=== PATIENT | male | born 1950 | race Caucasian/White ===

== ENCOUNTER 2018-07-26 14:40 | Emergency (ER) | payer OTHER, MEDICARE ==
--- OUTSIDE RECORDS SUMMARY | 2018-07-26 14:43 | XMS REPORT | Encounter Summary ---
:1950 Author Care Team Providers Name Role Phone Dr. Enrique Sun Primary Care Provider [phone] Senthil Calhoun Fire Extinguisher Installer [phone] Van Young MD Claim Trainee [phone] Reason for Visit cough Instructions 1. Chronic bronchitis ProAir HFA 90 mcg/actuation aerosol inhaler Cheratussin AC 10 mg-100 mg/5 mL oral liquid amoxicillin 875 mg-potassium clavulanate 125 mg tablet ProAir HFA 90 mcg/actuation aerosol inhaler Medrol (Justus) 4 mg tablets in a dose pack Discussion Note: None recorded.Patient educational handouts: No information available. Plan of Care Patient Instructions Meds were sent to your pharmacy today, please call if any issues call/email if you are not feeling better within the next 1-2 weeks Reminders Provider Appointments [facility]v on or around [facility] 12/28/2018 MD [facility] None recorded. Referral None recorded. Procedures None recorded. Surgeries None recorded. Imaging None recorded. Medications Name Start Date amoxicillin 875 mg-potassium clavulanate 125 mg tablet Take 1 tablet every 12 hours by oral route with meals for 10 days. Cheratussin AC 10 mg-100 mg/5 mL oral liquid Take 10 mL twice a day by oral route as needed. for cough- sedating ibuprofen 800 mg tablet Take 1 tablet 3 times a day by oral route as needed. irbesartan 150 mg-hydrochlorothiazide 12.5 mg tablet levothyroxine 25 mcg tablet Medrol (Justus) 4 mg tablets in a dose pack as directed, with meals ProAir HFA 90 mcg/actuation aerosol inhaler Inhale 2 puffs every 4 hours by inhalation route as needed. sotalol 80 mg tablet Take 1 tablet twice a day by oral route for 90 days. Medications Administered None recorded. Vitals Height Weight BMI Blood Pressure 5 ft 11 in 210.5 lbs 29.4 kg/m2 110/74 mm[Hg] Lab Results None recorded. Allergies Code Code System Name Reaction Severity Status Onset NKDA Problems Name Status Onset Date Source Hypothyroidism Active 06/08/2018 Hypertensive Disorder Active 06/08/2018 Atrial Fibrillation Active 06/08/2018 History of Malignant Melanoma Active 06/08/2018 Procedures Date Name Performed by 05/24/2011 Other Information not available 05/24/2007 Cancer Surgery Information not available 05/24/1986 Cardiac Surgery Information not available Cardiac Surgery Information not available Foot/toes Surgery Procedure Information not available Tonsillectomy Information not available 06/08/2018 XR, Knee, 3 View [facility] [address] [place] [address] (Work Place) Vaccine List Vaccine Type influenza, high dose seasonal 06/08/20180.5 mL pneumococcal polysaccharide PPV23 08/22/2014 Social History Smoking Status Never Smoker Past Encounters 07/01/2018 Chronic Bronchitis Annabella Palmer MD: [address], [address], [place] [address], Ph. 06/08/2018 Pain in Right Knee; Screening for Malignant Neoplasm of Colon; Immunization; Body Mass Index 25-29 - Overweight Enrique Sun MD: [address], [address], [place] [address], Ph. History of Present Illness Note: 68 yo male with hx Afib, c/o cough x 4 weeks. Productive cough, green sputum, worse when lyingdown, congestion, post nasal drainage, denies fever. no relief with prednisone 3 wks ago (for kneepain) saw ortho, had right knee steroid injection this morning<div>nonsmoker, no wheeze, n/v/d </div>Review of Systems: ROS as noted in the HPI Review of Systems None recorded. Physical Exam Notes: General: well developed, well nourished, in no acute distress. mildly fatigued

Head: normocephalic and atraumatic.

Eyes: PERRL/EOM intact, conjunctiva and sclera clear with out nystagmus.

Ears: TM's intact and clear with normal canals with grossly normal hearing.

Nose: turbinates congested, no sinus TTP. no deformity, discharge, inflammation, or lesions.

Mouth: (+) mild injection of posterior oropharynx, (+)clear post nasal drainage, otherwise no deformity or lesions with good dentition.

Neck: no masses, thyromegaly, or abnormal cervical nodes.

Chest Wall: no deformities or masses noted.

Lungs: distant breath sounds bilaterally nonlabored respiratory effort, no wheeze, rales or rhonchi

Heart: chest non-tender; regular rate and rhythm, S1, S2 without murmurs, rubs, or gallops

Abdomen: soft, nontender, nondistended, no masses, no hernia, no rebound, normoactive bowel sounds

Msk: no deformity or scoliosis noted of thoracic or lumbar spine.

Pulses: pulses normal in all 4 extremities.

Extremities: no clubbing, cyanosis, edema, or deformity noted with normal full range of motion of all joints.

Neurologic: no focal deficits, cranial nerves II-XII grossly intact with normal sensation, reflexes, coordination, muscle strength and tone.

Skin: intact without lesions or rashes.

Lymph Nodes:no significant cervical, axillary or supraclavicular adenopathy.

Psych: alert and cooperative; normal mood and affect; normal attention span and concentration. No suicidal/homicidal ideations, no panic attacks
--- OUTSIDE RECORDS SUMMARY | 2018-07-26 14:43 | XMS REPORT | Clinical Summary ---
:1950 Author Organization [facility] Address [address] [place] [address] Care Team Providers Name Role Phone Zacarias Cagle MD Primary Care Provider Allergies No Known Allergies Medications Medication Sig Dispensed Refills Start Date End Date Status sotalol (BETAPACE) 80 2 (two) times a 0 09/11/2016 Active MG tablet day. aspirin (ECOTRIN) 81 Take 81 mg by 0 Active MG enteric coated mouth daily. tablet valsartan-hydrochloro 0 02/18/2017 Active thiazide (DIOVAN-HCT) 160-12.5 mg per tablet dextromethorphan-guai Take 1 tablet by 28 each 0 08/11/2017 Active fenesin (MUCINEX DM) mouth 2 (two) 30-600 mg tablet times a day as extended release 12 needed hr (congestion post nasal drip). promethazine-codeine Take 5 mL by 120 mL 0 08/11/2017 08/21/2017 (PHENERGAN with mouth every 6 CODEINE) 6.25-10 mg/5 (six) hours as mL syrup needed for cough for up to 10 days. azithromycin Take 2 tablets 6 tablet 0 08/11/2017 08/16/2017 (ZITHROMAX) 250 MG the first day, tablet then 1 tablet daily for 4 days. Hospital, Clinic, or Other Ordered Dose Route Frequency Start Date End Date Status Facility Administered Medication methylPREDNISolone acetate 40 mg IM once 08/11/2017 08/11/2017 Ended (DEPO-MEDROL) injection 40 mgIndications: Acute sinusitis, recurrence not specified, unspecified location Active Problems Problem Noted Date Essential hypertension 10/27/2016 A-fib 09/03/2016 Encounters Date Type Specialty Care Team Description 08/11/2017 Office Visit Family Medicine Zacarias Cagle Acute sinusitis, recurrence not specified, unspecified location (Primary Dx); MD Alon Pharyngitis, unspecified etiology; Acute secretory otitis media of both ears; Acute bronchitis, unspecified organism; Other fatigue; Myalgia; Seasonal allergic rhinitis, unspecified chronicity, unspecified trigger after 07/25/2017 Family History Medical History Relation Name Comments Cancer Father Colon cancer Father Parkinsonism Father No Known Problems Mother Thyroid disease Sister Relation Name Status Comments Father Mother Sister Social History Tobacco Use Types Packs/Day Years Used Date Never Smoker Smokeless Tobacco: Never Used Alcohol Use Drinks/Week oz/Week Comments Yes Occassionally Sex Assigned at Date Recorded Not on file Job Start Date Occupation Industry Not on file Not on file Not on file Travel History Travel Start Travel End No recent travel history available. Last Filed Vital Signs Vital Sign Reading Time Taken Blood Pressure 94/59 08/11/2017 1:38 PM CDT Pulse 77 08/11/2017 1:38 PM CDT Temperature 36.8 C (98.2 F) 08/11/2017 1:38 PM CDT Respiratory Rate 20 08/11/2017 1:38 PM CDT Oxygen Saturation 97% 08/11/2017 1:38 PM CDT Inhaled Oxygen Concentration - - Weight 96.3 kg (212 lb 3.2 oz) 08/11/2017 1:38 PM CDT Height 180.3 cm (5' 11") 08/11/2017 1:38 PM CDT Body Mass Index 29.6 08/11/2017 1:38 PM CDT Plan of Treatment Health Maintenance Due Date Last Done Comments COLON CANCER SCREENING 2000 SHINGLES VACCINES (#1) 2000 65+ PNEUMOCOCCAL VACCINE (1 of 2 - PCV13) 2015 PNEUMOCOCCAL POLYSACCHARIDE VACCINE AGE 65 AND OVER 2015 INFLUENZA VACCINE 12/22/2017 Implants Implanted Type Area Manager Services Device Shelf Model / Identifier Expiration Serial / Date Lot System Reveal Linq W/Monitors - [id number] Cardiac N/A: [employer] 2017 LINQSYS / Implanted: 09/15/2016 (Quantity not on file) Pacemakers and N/A CARDIAC RHYTHM / Related DISEASE MGMT [id number] Products Results Not on fileafter 07/25/2017 Insurance Payer Benefit Plan / Group Subscriber ID Type Phone Address DIANA ORTIZ OPEN ACCESS/NETWORK xxxxxxxxxxx HMO Advance Directives Patient has advance care planning documents, and code status on file. For more information, please contact:[place] [address] Code Status Date Activated Date Inactivated Comments Full Code 09/03/2016 8:29 AM 09/04/2016 5:28 PM Code Status decision reached by: Patient
--- NOTE | 2018-07-26 16:19 | EDPHYS ---
Physician Documentation [facility] Name: Ranulfo Manuel Age: 68 yrs Sex: Male : 1950 Arrival Date: 07/26/2018 Time: 14:42 Bed 19 Private MD: ED Physician Mychal Ochoa HPI: 07/26 20:25 This 68 yrs old Male presents to ER via Wheelchair with complaints of Afib. gs 20:25 The patient presents with a history of irregular heart beat, heart racing. Onset: The gs symptoms/episode began/occurred acutely, just prior to arrival. Duration: The patient or guardian reports a single episode, that is now resolved. Modifying factors: The symptoms are aggravated by nothing. The symptoms are alleviated by nothing. Associated signs and symptoms: Pertinent negatives: chest pain, cough, fever, SOB, vomiting. Severity of symptoms: At their worst the symptoms were severe in the emergency department the symptoms have resolved. The patient has experienced similar episodes in the past, a few times. 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 - Social history:: Smoking status: Patient/guardian denies using tobacco. - Ebola Screening: : Patient denies exposure to infectious person Patient denies travel to an Ebola-affected area in the 21 days before illness onset. ROS: 20:25 All other systems are negative. gs Exam: 20:25 Head/Face: Normocephalic, atraumatic. Eyes: Pupils equal round and reactive to light, gs extra-ocular motions intact. Lids and lashes normal. Conjunctiva and sclera are non-icteric and not injected. Cornea within normal limits. Periorbital areas with no swelling, redness, or edema. ENT: Nares patent. No nasal discharge, no septal abnormalities noted. Tympanic membranes are normal and external auditory canals are clear. Oropharynx with no redness, swelling, or masses, exudates, or evidence of obstruction, uvula midline. Mucous membranes moist. Neck: Trachea midline, no thyromegaly or masses palpated, and no cervical lymphadenopathy. Supple, full range of motion without nuchal rigidity, or vertebral point tenderness. No Meningismus. Chest/axilla: Normal chest wall appearance and motion. Nontender with no deformity. No lesions are appreciated. Cardiovascular: Regular rate and rhythm with a normal S1 and S2. No gallops, murmurs, or rubs. Normal PMI, no JVD. No pulse deficits. Respiratory: Lungs have equal breath sounds bilaterally, clear to auscultation and percussion. No rales, rhonchi or wheezes noted. No increased work of breathing, no retractions or nasal flaring. Abdomen/GI: Soft, non-tender, with normal bowel sounds. No distension or tympany. No guarding or rebound. No evidence of tenderness throughout. Back: No spinal tenderness. No costovertebral tenderness. Full range of motion. Skin: Warm, dry with normal turgor. Normal color with no rashes, no lesions, and no evidence of cellulitis. MS/ Extremity: Pulses equal, no cyanosis. Neurovascular intact. Full, normal range of motion. Neuro: Awake and alert, GCS 15, oriented to person, place, time, and situation. Cranial nerves II-XII grossly intact. Motor strength 5/5 in all extremities. Sensory grossly intact. Cerebellar exam normal. Normal gait. 20:25 Constitutional: The patient appears alert, awake. 20:25 ECG was reviewed by the Attending Physician. Vital Signs: 14:51 BP 142 / 86; Pulse 73; Resp 15; Temp 97.3(TE); Pulse Ox 98% on R/A; Weight 95.25 kg; ss Height 5 ft. 11 in. (180.34 cm); Pain 0/10; 16:33 BP 114 / 75; Pulse 75; Resp 16 S; Pulse Ox 98% on R/A; Pain 0/10; jl7 14:51 Body Mass Index 29.29 (95.25 kg, 180.34 cm) ss MDM: 16:10 Patient medically screened. gs 20:25 Differential diagnosis: arrythmia. Data reviewed: vital signs, nurses notes. Response gs to treatment: the patient's symptoms have resolved after treatment. ED course: pt stated wants to go home no work up have spoken with calhoun will see in am. 07/26 14:53 Order name: EKG; Complete Time: 14:53 07/26 14:53 Order name: EKG - Nurse/Tech; Complete Time: 15:07 ss EC:25 Rate is 72 beats/min. Rhythm is regular. DC interval is normal. QRS interval is normal. gs T waves are Inverted. Clinical impression: Abnormal EKG without significant change. Interpreted by me. Administered Medications: No medications were administered Disposition: 03 16:19 Discharged to Home. Impression: Atrial fibrillation and flutter. - Condition is Stable. - Discharge Instructions: Atrial Fibrillation. - Medication Reconciliation Form, Thank You Letter, Antibiotic Education, Prescription Opioid Use form. - Follow up: Senthil Calhoun MD; When: Tomorrow; Reason: Recheck today's complaints, Re-evaluation by your physician. - Problem is an ongoing problem. - Symptoms are resolved. Signatures: Corry Garcia RN RN ss Kirsten Youssef RN RN jl7 Mychal Ochoa MD MD Corrections: (The following items were deleted from the chart) 16:19 16:19 07/26/2018 16:19 Discharged to Home. Impression: Atrial fibrillation and flutter. gs Condition is Stable. Forms are Medication Reconciliation Form, Thank You Letter, Antibiotic Education, Prescription Opioid Use. Follow up: Senthil Calhoun; When: Tomorrow; Reason: Recheck today's complaints, Re-evaluation by your physician. 16:34 16:19 07/26/2018 16:19 Discharged to Home. Impression: Atrial fibrillation and flutter. jl7 Condition is Stable. Forms are Medication Reconciliation Form, Thank You Letter, Antibiotic Education, Prescription Opioid Use. Follow up: Senthil Calhoun; When: Tomorrow; Reason: Recheck today's complaints, Re-evaluation by your physician. Problem is an ongoing problem. Symptoms are resolved. gs
--- NOTE | 2018-07-26 16:19 | ER ---
Nurse's Notes [facility] Name: Ranulfo Manuel Age: 68 yrs Sex: Male : 1950 Arrival Date: 07/26/2018 Time: 14:42 Bed 19 Private MD: Diagnosis: Atrial fibrillation and flutter Presentation: 07/26 14:49 Presenting complaint: Patient states: "I'm in Afib and it's just draining me." Pt ss reports that he called his loader magazine grinder when his afib started approximately 45 minutes ago, and told him to come to the ER. Transition of care: patient was not received from another setting of care. Onset of symptoms was July 26, 2018. Risk Assessment: Do you want to hurt yourself or someone else? Patient reports no desire to harm self or others. Initial Sepsis Screen: Does the patient meet any 2 criteria? No. Patient's initial sepsis screen is negative. Does the patient have a suspected source of infection? No. Patient's initial sepsis screen is negative. Care prior to arrival: None. 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 - Social history:: Smoking status: Patient/guardian denies using tobacco. - Ebola Screening: : Patient denies exposure to infectious person Patient denies travel to an Ebola-affected area in the 21 days before illness onset. Screenin:00 Abuse screen: Denies threats or abuse. Denies injuries from another. Nutritional jl7 screening: No deficits noted. Tuberculosis screening: No symptoms or risk factors identified. Fall Risk None identified. Assessment: 15:00 General: Appears in no apparent distress. uncomfortable. Pain: Denies pain. Neuro: jl7 Level of Consciousness is awake, alert, obeys commands, Oriented to person, place, time, situation. Cardiovascular: Denies chest pain, Patient's skin is warm and dry. Respiratory: Airway is patent Respiratory effort is even, unlabored, Respiratory pattern is regular, symmetrical, Denies cough, shortness of breath. Derm: Skin is pink, warm \\T\\ dry. 16:00 Reassessment: Patient appears in no apparent distress at this time. No changes from jl7 previously documented assessment. Patient and/or family updated on plan of care and expected duration. Pain level reassessed. Patient is alert, oriented x 3, equal unlabored respirations, skin warm/dry/pink. Patient denies pain at this time. Vital Signs: 14:51 BP 142 / 86; Pulse 73; Resp 15; Temp 97.3(TE); Pulse Ox 98% on R/A; Weight 95.25 kg; Height 5 ft. 11 in. (180.34 cm); Pain 0/10; 16:33 BP 114 / 75; Pulse 75; Resp 16 S; Pulse Ox 98% on R/A; Pain 0/10; jl7 14:51 Body Mass Index 29.29 (95.25 kg, 180.34 cm) ED Course: 14:42 Patient arrived in ED. mr 14:48 Kirsten Youssef, RN is Primary Nurse. 7 14:51 Triage completed. 14:51 Arm band placed on right wrist. 14:56 EKG done, by rf technician. reviewed by Modesto Glasgow MD. 3 15:00 Patient has correct armband on for positive identification. Placed in gown. Bed in low jl7 position. Call light in reach. Side rails up X 1. clinical research monitor on. Pulse ox on. NIBP on. Warm blanket given. 15:07 Mychal Ochoa MD is Attending Physician. 16:18 Senthil Calhoun MD is Referral Physician. 16:33 No provider procedures requiring assistance completed. Patient did not have IV access jl7 during this emergency room visit. Administered Medications: No medications were administered Outcome: 16:19 Discharge ordered by . 16:33 Discharged to home ambulatory. jl7 16:33 Condition: stable 16:33 Discharge instructions given to patient, family, Instructed on discharge instructions, follow up and referral plans. Demonstrated understanding of instructions, follow-up care. 16:34 Patient left the ED. 7 Signatures: Germain Jigna GarciaCorry RN RN Kirsten Youssef RN RN [facility] Mychal Ochoa MD MD Jacqueline Power 3
--- NOTE | 2018-07-27 06:06 | EKG ---
Test Date: 2018-07-26 Test Time: 14:52:00 Vice President Research: ANTOINE MEASUREMENT RESULTS: Intervals: Rate: 72 IN: 182 QRSD: 92 QT: 404 QTc: 442 [place]: P: 43 IN: 182 QRS: 99 T: -4 INTERPRETIVE STATEMENTS: Normal sinus rhythm Rightward axis Abnormal QRS-T angle, consider primary T wave abnormality Abnormal ECG Compared to ECG 09/02/2016 16:52:02 T-wave abnormality now present Atrial fibrillation no longer present ST (T wave) deviation no longer present Electronically Signed On 07-27-18 06:04:25 PERIODONTIST by Mingo Birmingham
== END 2018-07-26 16:34 | disposition home or self-care (01) ==
LOC: ER 14:40
DX: I48.91 Unspecified atrial fibrillation (principal); I48.92 Unspecified atrial flutter; I45.6 Pre-excitation syndrome
CPT/HCPCS: 93005; 99284

== ENCOUNTER 2018-08-12 11:45 | Observation (INO) | payer OTHER, MEDICARE ==
--- OUTSIDE RECORDS SUMMARY | 2018-08-12 11:53 | XMS REPORT | Clinical Summary ---
:1950 Author Organization [facility] Address [address] [place] [address] Care Team Providers Name Role Phone Zacarias [...] allergic rhinitis, unspecified chronicity, unspecified trigger after 08/11/2017 Family History Medical History Relation Name Comments [...] INFLUENZA VACCINE 12/22/2017 Implants Implanted Type Area Quality Control Assistant Device Shelf Model / Identifier Expiration Serial / Date Lot System Reveal Linq W/Monitors - [id number] Cardiac N/A: [employer] 2017 LINQSYS / Implanted: 09/15/2016 (Quantity not on file) Pacemakers and N/A CARDIAC RHYTHM / Related DISEASE MGMT [id number] Products Results Not on fileafter 08/11/2017 Insurance Payer Benefit Plan / Group Subscriber ID Type Phone Address DIANA ORTIZ OPEN ACCESS/NETWORK xxxxxxxxxxx HMO Advance Directives Patient has advance care planning documents, and code status on file. For more information, please contact:[place] [address] Code Status Date Activated Date Inactivated Comments Full Code 09/03/2016 8:29 AM 09/04/2016 5:28 PM Code Status decision reached by: Patient
--- NOTE | 2018-08-12 12:14 | EDPHYS ---
Physician Documentation [facility] Name: Ranulfo Manuel Age: 68 yrs Sex: Male : 1950 Arrival Date: 08/12/2018 Time: 11:46 Bed 6 Private MD: Senthil Calhoun L ED Physician Vin Snell HPI: 08/12 12:07 This 68 yrs old Male presents to ER via Ambulatory with complaints of Chest kassidy Pain, Abnormal EKG. 12:07 The patient or guardian reports chest pain that is located primarily in the substernal kassidy area. Onset: 5 day(s) ago. The pain does not radiate. Associated signs and symptoms: The patient has no apparent associated signs or symptoms. The chest pain is described as a heaviness, a pressure. Modifying factors: The symptoms are alleviated by nothing. the symptoms are aggravated by nothing. Severity of pain: At its worst the pain was moderate. 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 - Social history:: Smoking status: Patient/guardian denies using tobacco, Patient/guardian denies using alcohol, IV drugs. - Ebola Screening: : Patient negative for fever greater than or equal to 101.5 degrees Fahrenheit, and additional compatible Ebola Virus Disease symptoms Patient denies exposure to infectious person Patient denies travel to an Ebola-affected area in the 21 days before illness onset No symptoms or risks identified at this time. - Family history:: not pertinent. ROS: 12:07 Constitutional: Negative for fever, chills, and weight loss, Eyes: Negative for injury, kassidy pain, redness, and discharge, ENT: Negative for injury, pain, and discharge, Neck: Negative for injury, pain, and swelling, Respiratory: Negative for shortness of breath, cough, wheezing, and pleuritic chest pain, Abdomen/GI: Negative for abdominal pain, nausea, vomiting, diarrhea, and constipation, Back: Negative for injury and pain, : Negative for injury, bleeding, discharge, and swelling, MS/Extremity: Negative for injury and deformity, Skin: Negative for injury, rash, and discoloration, Neuro: Negative for headache, weakness, numbness, tingling, and seizure, Psych: Negative for depression, anxiety, suicide ideation, homicidal ideation, and hallucinations, Allergy/Immunology: Negative for hives, rash, and allergies, Endocrine: Negative for neck swelling, polydipsia, polyuria, polyphagia, and marked weight changes, Hematologic/Lymphatic: Negative for swollen nodes, abnormal bleeding, and unusual bruising. 12:07 Cardiovascular: Positive for chest pain. Exam: 12:07 Constitutional: This is a well developed, well nourished patient who is awake, alert, kassidy and in no acute distress. Head/Face: Normocephalic, atraumatic. Eyes: Pupils equal round and reactive to light, extra-ocular motions intact. Lids and lashes normal. Conjunctiva and sclera are non-icteric and not injected. Cornea within normal limits. Periorbital areas with no swelling, redness, or edema. ENT: Nares patent. No nasal discharge, no septal abnormalities noted. Tympanic membranes are normal and external auditory canals are clear. Oropharynx with no redness, swelling, or masses, exudates, or evidence of obstruction, uvula midline. Mucous membranes moist. Neck: Trachea midline, no thyromegaly or masses palpated, and no cervical lymphadenopathy. Supple, full range of motion without nuchal rigidity, or vertebral point tenderness. No Meningismus. Chest/axilla: Normal chest wall appearance and motion. Nontender with no deformity. No lesions are appreciated. Cardiovascular: Regular rate and rhythm with a normal S1 and S2. No gallops, murmurs, or rubs. Normal PMI, no JVD. No pulse deficits. Respiratory: Lungs have equal breath sounds bilaterally, clear to auscultation and percussion. No rales, rhonchi or wheezes noted. No increased work of breathing, no retractions or nasal flaring. Abdomen/GI: Soft, non-tender, with normal bowel sounds. No distension or tympany. No guarding or rebound. No evidence of tenderness throughout. Back: No spinal tenderness. No costovertebral tenderness. Full range of motion. Male : Normal genitalia with no discharge or lesions. Skin: Warm, dry with normal turgor. Normal color with no rashes, no lesions, and no evidence of cellulitis. MS/ Extremity: Pulses equal, no cyanosis. Neurovascular intact. Full, normal range of motion. Neuro: Awake and alert, GCS 15, oriented to person, place, time, and situation. Cranial nerves II-XII grossly intact. Motor strength 5/5 in all extremities. Sensory grossly intact. Cerebellar exam normal. Normal gait. Psych: Awake, alert, with orientation to person, place and time. Behavior, mood, and affect are within normal limits. Vital Signs: 11:55 BP 148 / 85; Pulse 70; Resp 16; Temp 97.8; Pulse Ox 99% on R/A; Weight 96.16 kg; Height ch 5 ft. 11 in. (180.34 cm); Pain 0/10; 12:22 BP 142 / 89; Pulse 67; Resp 16; Pulse Ox 100% on R/A; Pain 1/10; hb 13:14 BP 158 / 88; Pulse 67; Resp 17; Pulse Ox 100% on R/A; tw2 11:55 Body Mass Index 29.57 (96.16 kg, 180.34 cm) [facility]: 12:02 Patient medically screened. [facility] 12:13 Data reviewed: vital signs, nurses notes, lab test result(s), EKG, radiologic studies, kassidy plain films. 08/12 12:04 Order name: Basic Metabolic Panel [facility] 08/12 12:04 Order name: CBC with Diff [facility] 08/12 12:04 Order name: LFT's [facility] 08/12 12:04 Order name: Magnesium [facility] 08/12 12:04 Order name: NT PRO-BNP [facility] 08/12 12:04 Order name: PT-INR [facility] 08/12 12:04 Order name: Troponin (emerg Dept Use Only) [facility] 08/12 12:04 Order name: XRAY Chest (1 view) [facility] 08/12 12:04 Order name: EKG; Complete Time: 12:05 08/12 12:04 Order name: Cardiac monitoring; Complete Time: 12:07 [facility] 08/12 12:04 Order name: EKG - Nurse/Tech; Complete Time: 12:07 [facility] 08/12 12:04 Order name: Lipase kassidy 08/12 12:05 Order name: TSH [facility] 08/12 12:04 Order name: IV Saline Lock; Complete Time: 12:18 [facility] 08/12 12:04 Order name: Labs collected and sent; Complete Time: 12:18 [facility] 08/12 12:04 Order name: O2 Per Protocol; Complete Time: 12: [facility] 08/12 12:04 Order name: O2 Sat Monitoring; Complete Time: 12: [facility] Administered Medications: 12:12 Drug: NS 0.9% 1000 ml Route: IV; Rate: 125 ml/hr; Site: left antecubital; hb 13:16 Follow up: IV Status: Infusion continued upon admission tw2 Disposition: 08/12/18 12:13 Hospitalization ordered by Nabila Michele for Inpatient Admission. Preliminary diagnosis are Chest pain, unspecified, Essential (primary) hypertension, Angina pectoris. - Bed requested for Telemetry/MedSurg (Inpatient). - Status is Inpatient Admission. hb - Condition is Fair. - Problem is new. - Symptoms have improved. UTI on Admission? No Signatures: Dispatcher [employer] EDMS Aline Espinosa, RN RN Vin Snell MD MD cha Baxter, Heather, RN RN Puja Hamilton Tara RN tw2 Corrections: (The following items were deleted from the chart) 12:17 12:13 Hospitalization Ordered by Nabila Michele MD for Inpatient Admission. Preliminary eb diagnosis is Chest pain, unspecified; Essential (primary) hypertension; Angina pectoris. Bed requested for Telemetry/MedSurg (Inpatient). Status is Inpatient Admission. Condition is Fair. Problem is new. Symptoms have improved. UTI on Admission? No. kassidy 13:07 12:17 08/12/2018 12:13 Hospitalization Ordered by Nabila Michele MD for Inpatient eb Admission. Preliminary diagnosis is Chest pain, unspecified; Essential (primary) hypertension; Angina pectoris. Bed requested for Telemetry/MedSurg (Inpatient). Status is Inpatient Admission. Condition is Fair. Problem is new. Symptoms have improved. UTI on Admission? No. eb 13:39 13:07 08/12/2018 12:13 Hospitalization Ordered by Nabila Michele MD for Inpatient hb Admission. Preliminary diagnosis is Chest pain, unspecified; Essential (primary) hypertension; Angina pectoris. Bed requested for Telemetry/MedSurg (Inpatient). Status is Inpatient Admission. Condition is Fair. Problem is new. Symptoms have improved. UTI on Admission? No. eb
--- NOTE | 2018-08-12 12:14 | ER ---
Nurse's Notes [facility] Name: Ranulfo Manuel Age: 68 yrs Sex: Male : 1950 Arrival Date: 08/12/2018 Time: 11:46 Bed 6 Private MD: Senthil Calhoun L Diagnosis: Chest pain, unspecified;Essential (primary) hypertension;Angina pectoris Presentation: 08/12 11:53 Presenting complaint: Patient states: Not feeling well since this morning. I was ch feeling dizzy and not well. from mid chest up, I feel pressure. that has been going on for 3-[address] Calhoun sent me here. Transition of care: patient was not received from another setting of care. Onset of symptoms was August 12, 2018. Risk Assessment: Do you want to hurt yourself or someone else? Patient reports no desire to harm self or others. Initial Sepsis Screen: Does the patient meet any 2 criteria? No. Patient's initial sepsis screen is negative. Does the patient have a suspected source of infection? No. Patient's initial sepsis screen is negative. Care prior to arrival: None. 11:53 Method Of Arrival: Ambulatory 11:53 Acuity: GIN 3 Triage Assessment: 11:55 General: Appears in no apparent distress. comfortable, Behavior is calm, cooperative, ch appropriate for age. Pain: Complains of pain in right clavicle, left clavicle, anterior aspect of right upper chest, anterior aspect of left upper chest and mid-sternal area Pain currently is 0 out of 10 on a pain scale. Quality of pain is described as pressure. Cardiovascular: Reports lightheadedness, shortness of breath, syncope. 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 - Social history:: Smoking status: Patient/guardian denies using tobacco, Patient/guardian denies using alcohol, IV drugs. - Ebola Screening: : Patient negative for fever greater than or equal to 101.5 degrees Fahrenheit, and additional compatible Ebola Virus Disease symptoms Patient denies exposure to infectious person Patient denies travel to an Ebola-affected area in the 21 days before illness onset No symptoms or risks identified at this time. - Family history:: not pertinent. Screenin:19 Abuse screen: Denies threats or abuse. Denies injuries from another. Nutritional hb screening: No deficits noted. Tuberculosis screening: No symptoms or risk factors identified. Fall Risk None identified. Assessment: 12:05 General: Appears in no apparent distress. Behavior is calm, cooperative. Pain: hb Complains of pain in chest Pain does not radiate. Pain currently is 1 out of 10 on a pain scale. Quality of pain is described as pressure, Pain began 2 weeks ago, worse today. Neuro: Level of Consciousness is awake, alert, obeys commands, Oriented to person, place, time, situation. Cardiovascular: Heart tones S1 S2 present Capillary refill < 3 seconds Patient's skin is warm and dry. Respiratory: Airway is patent Respiratory effort is even, unlabored, Respiratory pattern is regular, symmetrical, Breath sounds are clear bilaterally. GI: No signs and/or symptoms were reported involving the gastrointestinal system. : No signs and/or symptoms were reported regarding the genitourinary system. EENT: No signs and/or symptoms were reported regarding the EENT system. Derm: Skin is intact, is healthy with good turgor. Musculoskeletal: No signs and/or symptoms reported regarding the musculoskeletal system. 13:15 Reassessment: Patient appears in no apparent distress at this time. No changes from tw2 previously documented assessment. Patient and/or family updated on plan of care and expected duration. Pain level reassessed. Patient is alert, oriented x 3, equal unlabored respirations, skin warm/dry/pink. Vital Signs: 11:55 BP 148 / 85; Pulse 70; Resp 16; Temp 97.8; Pulse Ox 99% on R/A; Weight 96.16 kg; Height ch 5 ft. 11 in. (180.34 cm); Pain 0/10; 12:22 BP 142 / 89; Pulse 67; Resp 16; Pulse Ox 100% on R/A; Pain 1/10; hb 13:14 BP 158 / 88; Pulse 67; Resp 17; Pulse Ox 100% on R/A; tw2 11:55 Body Mass Index 29.57 (96.16 kg, 180.34 cm) ED Course: 11:46 Patient arrived in ED. as 11:46 Senthil Calhoun MD is Private Physician. as 11:54 Triage completed. 11:55 Arm band placed on left wrist. Patient placed in an exam room, on electronic device monitor. 12:00 Patient has correct armband on for positive identification. Placed in gown. Bed in low hb position. Call light in reach. Side rails up X 1. potline monitor on. Pulse ox on. NIBP on. 12:00 Inserted saline lock: 18 gauge in left antecubital area, using aseptic technique. Blood hb collected. Patient maintains SpO2 saturation greater than 95% on room air. 12:02 Vin Snell MD is Attending Physician. [facility] 12:06 Cony Chavarria RN is Primary Nurse. tw2 12:10 Nabila Michele MD is Hospitalizing Provider. [facility] 12:13 EKG done, by hospital pharmacy technician. reviewed by Vin Snell MD. [facility] 12:19 X-ray completed. Portable x-ray completed in exam room. Patient tolerated procedure mh1 well. 12:20 XRAY Chest (1 view) In Process Unspecified. EDMS 13:12 No provider procedures requiring assistance completed. Patient admitted, IV remains in tw2 place. Administered Medications: 12:12 Drug: NS 0.9% 1000 ml Route: IV; Rate: 125 ml/hr; Site: left antecubital; hb 13:16 Follow up: IV Status: Infusion continued upon admission tw2 Outcome: 12:13 Decision to Hospitalize by Provider. [facility] 13:13 Admitted to Med/surg via wheelchair, room 431, with chart, Report called to reggie jones tw2 13:13 Condition: stable 13:13 Instructed on the need for admit. 13:39 Patient left the ED. hb Signatures: Dispatcher [employer] EDMS Aline Espinosa, RN RN Vin Snell MD MD cha Harvey, Martha 1 Moraima Chowdary Heather, RN RN Cony Chavarria RN RN tw2 Jacqueline Power 3
[2018-08-12] MEDS ORDERED: NA CHLORIDE 0.9% 1,000 ML ONE (12:20)
--- NOTE | 2018-08-12 12:29 | RAD REPORT ---
EXAM DESCRIPTION: Amanda Single View08/12/2018 12:23 pm CLINICAL HISTORY: Chest pain COMPARISON: 2017 FINDINGS: The lungs appear clear of acute infiltrate. The heart is mildly enlarged. Postsurgical changes involve the chest. IMPRESSION: No acute abnormalities displayed
[2018-08-12 12:30] LABS: Absolute Lymphocytes (CBC) 1.2 K/uL (0.7-4.9); Absolute Monocytes 0.4 K/uL (0.1-1.3); Absolute Neutrophil 4.1 K/uL (1.8-8.0); Basophils % 0.8 % (0-1.3); Eosinophils % 2.7 % (0-4.4); Hematocrit 39.9 % (39.6-49.0); Lymphocytes % 20.7 % (15.3-44.8); MPV 10.2 fL (7.6-11.3); Monocytes % 6.9 % (3.3-12.3); RBC Red Blood Cell Count 4.48 M/uL (4.33-5.43)
[2018-08-12 12:31] LABS: Protime INR 1.61
[2018-08-12 13:15] LABS: ALT/SGPT 37 U/L (12-78); AST/SGOT 27 U/L (15-37); Albumin 3.7 g/dL (3.4-5.0); Alkaline Phosphatase 85 U/L (45-117); BUN Blood Urea Nitrogen 15 mg/dL (7-18); Bicarbonate 29 mmol/L (21-32); Bilirubin Direct 0.2 mg/dL (0-0.2); Bilirubin Total 0.9 mg/dL (0.2-1.0); Glucose Level 87 mg/dL (74-106); Lipase 67 U/L (73-393); Magnesium 2.4 mg/dL (1.8-2.4); NT PRO-BNP 424 pg/mL (<125); Potassium 3.9 mmol/L (3.5-5.1); Protein, Total 7.6 g/dL (6.4-8.2); Sodium Level 142 mmol/L (136-145); Troponin (Emerg Dept Use Only) < 0.02 ng/mL (0.0-0.045)
[2018-08-12] MEDS ORDERED: MORPHINE 2 MG/ML SYR IV PRN (13:46)
[2018-08-12] MEDS ORDERED: NITROGLYCERIN 0.4 MG/TAB SL PRN (13:46)
[2018-08-12] MEDS ORDERED: ACETAMINOPHEN 500 MG TAB PO PRN (13:46)
--- NOTE | 2018-08-12 16:42 | ECHO ---
HEIGHT: 5 ft 11 in WEIGHT: 212 lb 0 oz DATE OF STUDY: 08/12/[address]: Nabila Michele MD 2-DIMENSIONAL: YES M.MODE: YES DOPPLER: YES COLOR FLOW: YES TDS: PORTABLE: DEFINITY: BUBBLE STUDY: DIAGNOSIS: CHEST PRESSURE/PAIN CARDIAC HISTORY: CATHERIZATION: NO SURGERY: YES PROSTHETIC VALVE: NO PACEMAKER: NO MEASUREMENTS (cm) DIASTOLIC (NORMALS) SYSTOLIC (NORMALS) IVSd 1.0 (0.6-1.2) LA Diam 4.7 (1.9-4.0) LVEF 58% LVIDd 4.8 (3.5-5.7) LVIDs 3.3 (2.0-3.5) %FS 31% LVPWd 1.0 (0.6-1.2) Ao Diam 3.0 (2.0-3.7) 2 DIMENSIONAL ASSESSMENT: RIGHT ATRIUM: NORMAL LEFT ATRIUM: NORMAL RIGHT VENTRICLE: NORMAL LEFT VENTRICLE: NORMAL TRICUSPID VALVE: NORMAL MITRAL VALVE: NORMAL PULMONIC VALVE: NORMAL AORTIC VALVE: NORMAL PERICARDIAL EFFUSION: NONE AORTIC ROOT: NORMAL LEFT VENTRICULAR WALL MOTION: NORMAL DOPPLER/COLOR FLOW: NORMAL COMMENTS: NORMAL TWO DIMENSIONAL ECHOCARDIOGRAM WITH DOPPLER. TECHNOLOGIST: YU MO
--- NOTE | 2018-08-12 18:16 | CON ---
Chief Complaint: Discomfort in the chest. History Of Present Illness: Mr. Manuel has a history of Eumkf-Opmwtjfdo-Xczuj and ablation. He also has atrial fibrillation, paroxysmal, and he is in sinus rhythm almost all the time. He started having chest pain about a week ago. It is just a vague uncomfortable feeling and feels bad when he tries to exert himself. Not having chest pain at the moment. When we did an EKG in the office , noted new T-wave inversions in I and aVL consistent with ischemic heart disease, possibly diagonal branch or LAD. I recommended that he be admitted to the hospital and have a cardiac cath. He is presently asymptomatic. He also has a history of hypothyroidism and a melanoma that was completely removed. No evidence of disease. Physical Examination: General: He is alert, oriented, pleasant, not in distress, 5 feet and 11 inches , 212 pounds. HEENT: Normal. Lungs: Clear. Cardiac exam: Within normal limits. Abdomen: Soft. Extremities: Unremarkable. Plan: Cardiac cath and possible PCI SH/MODL Voice ID: [id number] Report ID: [id number] MTDD
[2018-08-12] MEDS: SOTALOL HCL 80 MG TAB PO SCH (20:01)
[2018-08-12] MEDS: RIVAROXABAN 20 MG TABLET PO SCH (20:01)
--- NOTE | 2018-08-12 21:17 | EKG ---
Test Date: 2018-08-12 Test Time: 11:54:53 Anesthesiology Medical Doctor: KISHA MEASUREMENT RESULTS: Intervals: Rate: 69 MO: 222 QRSD: 90 QT: 418 QTc: 447 [place]: P: 59 MO: 222 QRS: 104 T: -79 INTERPRETIVE STATEMENTS: Sinus rhythm with 1st degree AV block Rightward axis T wave abnormality, consider inferior ischemia Abnormal ECG Compared to ECG 07/26/2018 14:52:00 First degree AV block now present Possible ischemia now present T-wave abnormality still present Electronically Signed On 08-12-18 21:16:41 CDT by Senthil Calhoun
--- NOTE | 2018-08-13 00:58 | HP ---
Date of Admission: 08/12/2018 Chief Complaint: Chest pain. Warehouse Material Handler: Dr. Calhoun with Cardiology. Primary Care Physician: Out of town in [place]. Code Status: Full code. History Of Present Illness: The patient is a 68-year-old male with past medical history of Hattie-Par kinson-White status post ablation, atrial fibrillation, recently started on Xarelto, who was in his [facility] state of health until a week prior to admission when the patient started to have shortness of br eath, chest pain, which was progressively worsening. The patient is faithful with his medications, d oes not smoke. He made an appointment with Dr. Calhoun for his chest pain and was seen today. He was found to have an abnormal EKG with T-wave inversions in inferior leads showing ischemia. The patien t was therefore sent to the ER for further evaluation. Upon arrival in the ER, he has still had ches t pain, improved with treatment. His repeat EKG again showed T-wave inversions. His initial set of cardiac enzymes were negative. Chest x-ray did not show any abnormalities. The patient was then ref erred for admission. I spoke with Dr. Calhoun's plans on taking the patient to heart catheterization for further evaluation. Past Medical History: Euiwb-Rcianwaio-Bdhch syndrome, status post ablation, melanoma removal from th e arm and 1 node in the back, hypothyroidism, atrial fibrillation on Xarelto. Surgical History: Ablation x2, melanoma removal and node removal from the back, [employer] LIN[employer] place ment in the chest. Allergies: NO KNOWN DRUG ALLERGIES. Medications: The patient takes Xarelto, irbesartan, sotalol. Family History: Positive for colon cancer in the father. Sister has thyroid problems. Diabetes als o runs in the family. Social History: The patient denies any tobacco use. Does drink 1-2 beers per week. The patient is retired. The patient is , independent in his activities of daily living. Review of Systems: Ten-point system reviewed, negative except as per HPI. Physical Examination: Vital Signs: Temperature 97.8, heart rate 70, blood pressure 148/85, respirations 16, and O2 99% on room air. General: Awake, alert, oriented x3. Some mild distress due to chest pain. Elderly male. HEENT: Normocephalic, atraumatic. PERRLA. EOMI. Moist mucous membranes. Oropharynx is clear. No rmal dentition. Conjunctivae are anicteric. Neck: Supple. No JVD. Trachea midline. CV: S1, S2. Regular rate and rhythm. Peripheral pulses present. No murmurs. Respiratory: Moving air well bilaterally. No wheezing or stridor. Gastrointestinal: Abdomen is soft, nontender, nondistended. Positive bowel sounds. No guarding or rigidity. Extremities: No clubbing, cyanosis, or edema. No calf tenderness. Neuro: Cranial nerves 2-12 intact grossly. No focal neurological deficit. Speech is normal. Skin: No rashes. Normal skin turgor. Psych: Mood is okay. Affect is full. Insight and judgment are good. Laboratory Data: WBC 5.9, H and H 13.4 and 39.9, platelets 192, neutrophils 68.9%. INR 1.61. Sodiu m 142, potassium 3.9, chloride 108, CO2 29, BUN 15, creatinine 1.08, glucose 87, calcium 8.6, and mag nesium 2.4. Troponin less than 0.02. TSH 3.06. Chest x-ray, I personally reviewed, shows no acute abnormalities, postsurgical changes of the chest. Assessment And Plan: 1.A 68-year-old male with unstable angina. The patient's EKG is showing T-wave inversions in inferi or leads. The patient has signs of ischemia on EKG. We will start on morphine and nitro p.r.n. Sta rt on chest pain guidelines with beta-raf and the patient is already on ARB. For now, we will co ntinue with Xarelto per Dr. Calhoun's recommendations. We will hold Xarelto dose the night prior to c atheterization. 2.Atrial fibrillation, rate controlled, currently in sinus rhythm. We will continue sotalol and Xar elto. We will monitor on telemetry. 3.Hypothyroidism. We will continue Synthroid. 4.DVT prophylaxis. The patient is already on anticoagulation. Admit the patient to Med-Surg, place as inpatient. Length of stay, greater than 2 midnights. The luther grajeda has signs of ischemia on EKG. It is unstable. We will need to have heart catheterization done , currently has already taken his Xarelto dose today. We will hold dose the night prior to catheteri zation. SA/SHARON Voice ID: [id number]
[2018-08-13] MEDS: LEVOTHYROXINE SOD 0.025 MG TAB PO SCH (05:44)
[2018-08-13 05:51] LABS: Absolute Lymphocytes (CBC) 1.6 K/uL (0.7-4.9); Absolute Monocytes 0.5 K/uL (0.1-1.3); Absolute Neutrophil 3.7 K/uL (1.8-8.0); Basophils % 0.8 % (0-1.3); Eosinophils % 2.8 % (0-4.4); Hematocrit 37.6 % (39.6-49.0); Lymphocytes % 26.9 % (15.3-44.8); MPV 10.2 fL (7.6-11.3); Monocytes % 7.8 % (3.3-12.3); RBC Red Blood Cell Count 4.26 M/uL (4.33-5.43)
[2018-08-13] MEDS ORDERED: IRBESARTAN 75 MG PO SCH (09:00)
--- NOTE | 2018-08-13 09:34 | PN ---
Mr. Manuel seems to be doing well. I am going to recommend that we do a heart catheterization on . Presently, he has had no further chest, jaw, or shoulder pain. So, I think we are doing the salud ropriate thing awaiting for the normal labor relations consultant schedule. MELISSA Voice ID: [id number] Report ID: [id number]
[2018-08-13] MEDS: IRBESARTAN 150 MG TAB PO SCH (10:11)
[2018-08-13] MEDS: SOTALOL HCL 80 MG TAB PO SCH ×2 (10:13→21:42)
[2018-08-13] MEDS: ASPIRIN EC 81 MG TAB PO SCH (10:13)
--- NOTE | 2018-08-13 17:10 | PN ---
Date of Progress Note: 08/13/2018 Subjective: The patient is seen and examined. Chart reviewed and case discussed with RN. The patient had episode of neck pain radiating to the jaw on the left arm. Stat EKG was done, which do not show any changes, however, still has some T-wave inversions in the inferior leads. Case discussed with Dr. Tinoco. Medications: List reviewed. Physical Examination: Vital signs: Temperature 99, heart rate 68, blood pressure 142/86, respirations 16, O2 99% on room air. General: Awake, alert, oriented x3. Elderly male, in mild distress. CV: S1 and S2. Regular rate and rhythm. Peripheral pulses present. Respiratory: Moving air well bilaterally. No wheezing or stridor. Gastrointestinal: Abdomen is soft, nontender, nondistended. Positive bowel sounds. Extremities: No clubbing, cyanosis, or edema. Neurologic: Nonfocal. Laboratory Data: Sodium 143, potassium 4, chloride 110, CO2 27, BUN 13, creatinine 0.89, glucose 84, calcium 8.3. Triglycerides 105, cholesterol 155, LDL 88, HDL 46. WBC 6, H and H 13 and 37.6, platelets 160. Echocardiogram shows EF of 58%. Normal 2D echo. Assessment And Plan: 1. Unstable angina. The patient likely has disease in LAD, T-wave inversions also present. We will continue with chest pain guidelines, beta-raf, ARB, statin, and aspirin. The patient is already on anticoagulation. The patient has been scheduled for heart catheterization for Wednesday. Cholesterol panel reviewed. His Xarelto needs to be held night prior to hear cath. 2. Atrial fibrillation paroxysmal, currently in sinus rhythm, anticoagulated with Xarelto and sotalol for stroke prophylaxis. 3. Hypothyroidism. We will continue Synthroid. 4. Deep vein thrombosis prophylaxis addressed. Plan: Patient needs continued monitoring for possible worsening of ischemia seen on EKG converting to STEMI. Anticipate heart catheterization. /SHARON Voice ID: [id number] Report ID: [id number] KIMANI
[2018-08-13] MEDS: RIVAROXABAN 20 MG TABLET PO SCH (17:30)
[2018-08-13] MEDS: ATORVASTATIN 40 MG TAB PO SCH (21:43)
[2018-08-13 22:52] LABS: Urine Appearance CLEAR; Urine Bilirubin NEGATIVE (NEG); Urine Blood NEGATIVE (NEG); Urine Color YELLOW; Urine Glucose NEGATIVE (NEG); Urine Protein NEGATIVE (NEG); Urine pH 7.5 (5.0-7.0)
[2018-08-13 22:55] LABS: Urine Microscopic Reflex NO UMIC
[2018-08-14] MEDS: LEVOTHYROXINE SOD 0.025 MG TAB PO SCH (05:51)
[2018-08-14] MEDS: IRBESARTAN 150 MG TAB PO SCH (09:00)
[2018-08-14] MEDS: ASPIRIN EC 81 MG TAB PO SCH (09:00)
[2018-08-14] MEDS: SOTALOL HCL 80 MG TAB PO SCH ×2 (09:02→20:19)
--- NOTE | 2018-08-14 14:27 | PN ---
Mr. Manuel continues to feel well. EKG is not evolving. Enzymes are normal. The plan is to do cardi ac cath, possible stent tomorrow. He will not be on any blood thinners tonight. ARCHANA/SHARON Voice ID: [id number] Report ID: [id number]
--- NOTE | 2018-08-14 15:42 | PN ---
Date of Progress Note: 08/14/2018 History Of Present Illness: Patient seen and examined. Chart reviewed and case discussed with RN. The patient denies any chest pain, did report some lower extremity tingling and pain, improved with a mbulation. Medications: List reviewed. Physical Examination: Vital Signs: Temperature 96.5, heart rate 64, respirations 16, blood pressure 143/84, O2 98% on room air. General: Awake, alert, oriented x3, not in any acute distress, elderly male. CV: S1, S2. Regular rate and rhythm. Peripheral pulses present. Respiratory: Moving air well bilaterally. No wheezing. Gastrointestinal: Abdomen is soft, nontender, nondistended. Positive bowel sounds. Extremities: No clubbing, cyanosis, or edema. Neurologic: Nonfocal. Laboratory Data: Pending. Assessment And Plan: A 68-year-old male with: 1.Unstable angina. Continue chest pain guidelines. Xarelto will be held today in anticipation of h eart catheterization in the morning. Appreciate Dr. Calhoun' input. 2.Atrial fibrillation, paroxysmal, currently in sinus rhythm; Xarelto on hold. Continue sotalol. 3.Hypothyroidism. Synthroid. 4.DVT prophylaxis addressed. Plan: We will continue to monitor for further chest pain or ischemia or developing MT. Anticipating heart cath in a.m. /SHARON Voice ID: [id number] Report ID: [id number]
[2018-08-14] MEDS: ATORVASTATIN 40 MG TAB PO SCH (20:19)
[2018-08-15] MEDS: LEVOTHYROXINE SOD 0.025 MG TAB PO SCH (05:15)
[2018-08-15] MEDS: IRBESARTAN 150 MG TAB PO SCH (05:15)
[2018-08-15] MEDS: SOTALOL HCL 80 MG TAB PO SCH (05:16)
[2018-08-15] MEDS: ASPIRIN EC 81 MG TAB PO SCH (05:17)
--- NOTE | 2018-08-15 08:53 | EKG ---
Test Date: 2018-08-13 Test Time: 10:00:11 Order Filler: TUNG MEASUREMENT RESULTS: Intervals: Rate: 69 VA: 210 QRSD: 90 QT: 432 QTc: 462 [place]: P: 54 VA: 210 QRS: 96 T: 236 INTERPRETIVE STATEMENTS: Sinus rhythm with 1st degree AV block Rightward axis T wave abnormality, consider inferior ischemia Prolonged QT Abnormal ECG Compared to ECG 08/12/2018 11:54:53 Prolonged QT interval now present T-wave abnormality still present Possible ischemia still present Electronically Signed On 08-15-18 08:53:00 CDT by Senthil Calhoun
[2018-08-15] MEDS ORDERED: NA CHLORIDE 0.9% 500 ML ONE (10:59)
[2018-08-15] MEDS ORDERED: HEPA 1000U/500MLS 2,000 UNIT/1,000 ML BAG IV ONE (11:06)
[2018-08-15] MEDS ORDERED: MIDAZOLAM HCL 2 MG/2 ML INJ ONE (11:06)
[2018-08-15] MEDS ORDERED: NA CHLORIDE 0.9% 0 ML ONE (11:07)
[2018-08-15] MEDS ORDERED: FENTANYL CITR 100 MCG/2 ML ONE (11:07)
[2018-08-15] MEDS ORDERED: ATROPINE SULF 1 MG/10 ML SYR IV ONE (11:07)
--- NOTE | 2018-08-15 20:31 | OP ---
Surgeon: Senthil Calhoun MD Procedures: Left heart catheterization, coronary left ventricular angiography. Findings: The patient's coronary arteries are normal. His ejection fraction is normal. His left ve ntricular end-diastolic pressure is mildly elevated at 18 to 20, and there is a restrictive filling p attern to the left ventricle. There is also calcification of the pericardium high near the left atri um, so the diagnosis is he may have mild restrictive pericarditis. Procedure In Detail: The patient was brought to the cardiac vat house laborer in a fasting state, sedated wit h Versed, fentanyl, prepared and draped. Right radial artery was diminutive. It was not felt to be a good target for heart catheterization. We used the right femoral artery. After prep and drape, we anesthetized the area with 1% lidocaine. We were able to enter the artery with an 18-gauge needle. We cannulated it with a short J-wire and then placed a 4-Egyptian sheath. A 4-Egyptian sheath was used to insert a JL-4 3DRC and angled pigtail into the heart to take all pressures and pictures. At the e nd of the procedure, the catheters were removed over a wire. Sheath shot was done. Adequate anatomy was seen for a closure with StarClose close to the bifurcation of the profunda and superficial femor al arteries. Successful closure was obtained. No complications from the procedure. Estimated blood loss 10 cc. ARCHANA/SHARON Voice ID: [id number] Report ID: [id number]
--- NOTE | 2018-08-15 23:30 | DS ---
Date of Discharge: 08/15/2018 Ditcher: Dr. Calhoun with Cardiology. Procedures: Cardiac catheterization on 08/15/2018. Admitting Diagnoses: 1.Unstable angina. 2.Atrial fibrillation, rate controlled, currently in sinus rhythm. 3.Hypothyroidism. Discharge Diagnoses: 1.Chest pain, ACS ruled out. 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 3.Atrial fibrillation, intermittent, currently in sinus rhythm. 4.Hypothyroidism. Hospital Course: The patient is a 68-year-old male, comes in to the ER from Dr. Calhoun's office for abnormal EKG with T-wave inversion in inferior leads and having chest pain. The patient was admitted to the hospital, continued to have some chest pain which improved over the course of the hospital st ay. The patient's cardiac enzymes were negative and ACS was ruled out. Echocardiogram was done, whi ch showed EF of 58% and normal 2-dimensional echo. The patient did have some mild recurrence of his symptoms. The patient was taken to cardiac catheterization by Dr. Calhoun to rule out coronary artery disease. The patient's Xarelto had to be held in advance of the procedure. The patient tolerated t he heart cath well. 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 The patient did well over the course of the hospital stay and is [facility]. Symptoms had resolved. He was able to ambulate. He does not preciado ve any shortness of breath. Vital signs were stable. The patient was then discharged home in a stab le condition. Activity: As tolerated. Medications: As per medication reconciliation list. Followup: Follow up with PCP in 2-3 days. Follow up with logistics account manager, Dr. Calhoun, in 2 weeks. Ret urn to ER for worsening condition. SA/MODL Voice ID: [id number] Report ID: [id number]
== END 2018-08-15 16:40 | disposition home or self-care (01) ==
LOC: ER 11:45 → INTOOBSV 12:36 → ERHOLD 12:36 → 4TH 13:16
PROVIDERS: ADMIT Family Medicine; ATTEND Family Medicine
DX: R07.9 Chest pain, unspecified (principal); I31.9 Disease of pericardium, unspecified; E03.9 Hypothyroidism, unspecified; I48.0 Paroxysmal atrial fibrillation
CPT/HCPCS: 93005 ×2; 93306; 87088; 85025 ×2; 87086; 80048 ×2; 36415; 83735; 85610; 80061; 80076; 84443; 81003; 84484 ×3; 83690; 83880; 71045; 93458; 94760 ×7; 96360; 99285; C1893; J2250; J3010; J2270; J7030; G0378 ×2; J0583

== ENCOUNTER 2023-01-11 11:33 | Observation (INO) | payer OTHER, MEDICARE ==
--- OUTSIDE RECORDS SUMMARY | 2023-01-11 11:41 | XMS REPORT | Continuity of Care Document ---
:1950 Author Organization [facility] t Address [address] [place] [id number] Care Team Providers Name Role Phone Pcp, Patient Does Not Have A Primary Care Physician [id number] ERNESTINA ESCOBAR Attending Clinician Unavailable ERNESTINA ESCOBAR Attending Clinician Unavailable 1, [facility] Attending Clinician Unavailable Ernestina Escobar MD Attending Clinician Doctor Unassigned, [place] Attending Clinician Unavailable Bui_Q_WAG Attending Clinician Unavailable Bui_Q Attending Clinician Unavailable Bui_Q_WAG Admitting Clinician Unavailable Bui_Q Admitting Clinician Unavailable Payers Payer Name Policy Type Policy Number Effective Date Expiration Date [facility] [id number] 2021 00:00:00 [place]ICARE [place]: [id number] 2015 [place] Communication 00:00:00 [facility] [id number] 2018 OPTIONS (MEDICARE 00:00:00 SUPPLEMENT) Problems Condition Condition Condition Status Onset Resolution Last Treating Co mments Source Name Details Category Date Date Treatment Clinician Date Anticoagul Anticoagul Problem Active 2018-05 [facility] ant ant 05-24 Family therapy Therapy 00:00: Practic 00 e [place] Problem Active [facility] inson-Whit inson-Whit 4-03 Fa jasvir e pattern e Pattern 00:00: Prac tic 00 e Hypothyroi Hypothyroi Problem Active [facility] dism dism 1-16 Family 00:00: Practic 00 e Hypertensi Hypertensi Problem Active [facility] ve ve 1-16 Family disorder Disorder 00:00: Practi c 00 e Atrial Atrial Problem Active [facility] fibrillati Fibrillati 1-16 Fa jasvir on on 00:00: Practic 00 e History of History of Problem Active [facility] Malignant Malignant 1-16 Fami ly melanoma Melanoma 00:00: Practi c 00 e Essential Essential Disease Active [facility] hypertensi hypertensi 6-06 [facility] on [facility] 00:00: Hospita 00 l A-fib A-fib Disease Active [facility] [address] [facility] 00:00: Hospita 00 l No known No known Disease Unive rs active active ity of problems problems [facility] Allergies, Adverse Reactions, Alerts Allergy Allergy Status Severity Reaction(s) Onset Inactive Treating Comm ents Source Name Type Date Date Clinician NO KNOWN Drug Active Univers ALLERGIE Class ity of S [facility] Family History Family Member Diagnosis Comments Start Date Stop Date Source Natural father Cancer [facility] Natural father Colon cancer [facility] Natural father Parkinsonism [facility] Natural sister [facility] Social History Social Habit Start Date Stop Date Quantity Comments Source Gender identity [facility] Sexual orientation [facility] Exposure to 2021-07-10 2021-08-09 Not sure University of SARS-CoV-2 (event) 00:00:00 04:20:00 [facility] History of Social 2018-04-06 2018-04-[address] function 00:00:00 00:00:00 Hospital Alcohol intake 2017-08-11 2017-08-11 Current drinker of [facility] 00:00:00 00[facility]00[facility]00 [facility] Comment 2015-11-06 2015-11-06 Occassionally [facility] 00:00:00 00:00:00 Hospital Tobacco use and 2015-11-06 2015-11-06 Smokeless tobacco [facility] exposure 00:00:00 00:00:00 non-user Hospital Sex Ass[facility] At [birth year] [facility] 00:[facility] Smoking Status Start Date Stop Date Source Never Smoker [facility] Unknown if ever smoked [facility] Medications Ordered Filled Start Stop Current Ordering Indication Dosage Frequency Signature Comments Components Source Medication Medication Date Date Medication? Clinician (SIG) Name Name No known No Univers medications 1-12 ity of 14:39: [address] No known 2021- No Univers medications 1-12 ity of 14:39: [address] No known No Univers medications 1-12 ity of 14:39: [address] No known 2021- No Univers medications 1-12 ity of 14:39: [address] No known 2021- No Univers medications 1-12 ity of 14:39: [address] No known No Univers medications 1-12 ity of 14:39: [address] methylpredn methylpredn 2018-05 No methylpred [facility] isolone isolone -15 nisolone Famil y acetate 80 acetate 80 15:26: acetate 80 Practic mg/mL mg/mL 00 mg/mL e suspension suspension suspension for for for injectionTa injectionTa injectionT ke 80 mg by ke 80 mg by cj 80 mg injection injection by route. route. injection route. aspirin Yes 81mg QD Take 81 mg Meth yasmine (ECOTRIN) 3-[address] 81 MG 13:38: daily. Hospita enteric 48 l coated tablet dextrometho Yes 1{tbl} Q.5D Take 1 [facility] rphan-guaif 3-[address] enesin 00:00: mouth 2 Hospita (MUCINEX 00 (two) l DM) 30-600 times a mg tablet day as extended needed release 12 (congestio hr n post nasal drip). valsartan-h Yes Method i ydrochlorot - st hiazide 00:00: Hospita (DIOVAN-HCT 00 l ) 160-12.5 mg per tablet sotalol Yes Q.5D 2 (two) Method[facility] (BETAPACE) 4-[address] 80 MG 00:00: day. Hospita tablet 00 l acetaminoph acetaminoph No acetaminop [facility] en 300 en 300 hen 300 Family mg-codeine mg-codeine mg-codeine Practic 30 mg 30 mg 30 mg e tablet Take tablet Take tablet 1 tablet 1 tablet Take 1 every 6 every 6 tablet hours by hours by every 6 oral route oral route hours by as needed as needed oral route for 7 days. for 7 days. as needed for 7 days. amoxicillin amoxicillin No 1 Q12H amoxicilli [facility] [phone] Family mg-potassiu mg-potassiu mg-potassi Practic m m um e clavulanate clavulanate clavulanat 125 mg 125 mg e 125 mg tablet Take tablet Take tablet 1 tablet 1 tablet Take 1 every 12 every 12 tablet hours by hours by every 12 oral route oral route hours by with meals with meals oral route for 10 for 10 with meals days. days. for 10 days. irbesartan irbesartan irbesartan [facility] 75 mg 75 mg 75 mg Family tablet Take tablet Take tablet Practic 1 tablet 1 tablet Take 1 e every day every day tablet by oral by oral every day route. route. by oral route. levothyroxi levothyroxi No levothyrox [facility] ne 25 mcg ne 25 mcg ine 25 mcg Family tablet Take tablet Take tablet Practic 1 tablet 1 tablet Take 1 e every day every day tablet by oral by oral every day route. route. by oral route. methylpredn methylpredn No 80mg methylpred [facility] isolone isolone nisolone Famil y acetate 80 acetate 80 acetate 80 Practic mg/mL mg/mL mg/mL e suspension suspension suspension for for for injection injection injection Take 80 mg Take 80 mg Take 80 mg by by by injection injection injection route. route. route. sotalol 160 sotalol 160 No 1 BID sotalol [facility] mg tablet mg tablet 160 mg Fam ankit Take 1 Take 1 tablet Practic tablet tablet Take 1 e twice a day twice a day tablet by oral by oral twice a route for route for day by 90 days. 90 days. oral route for 90 days. Xarelto 20 Xarelto 20 No 1 Q1D Xarelto 20 [facility] mg tablet mg tablet mg tablet Family Take 1 Take 1 Take 1 Practic tablet tablet tablet e every day every day every day by oral by oral by oral route. route. route. Immunizations Ordered Immunization Filled Immunization Date Status Commen ts Source Name Name influenza, high dose influenza, high dose 2018-06-08 Completed [facility] Family seasonal seasonal 17:21:00 Practice pneumococcal pneumococcal 2014-08-22 [facility] jasvir polysaccharide PPV23 polysaccharide PPV23 00:00:00 Practice Vital Signs Vital Name Observation Time Observation Value Comments Source Systolic blood 2021-06-04 20:47:00 169 mm[Hg] Univer sity of pressure [facility] Diastolic blood 2021-06-04 20:47:00 92 mm[Hg] Unive rsity of pressure [facility] Heart rate 2021-06-04 20:47:00 65 /min Universi ty of [facility] Body temperature 2021-06-04 20:47:00 36.11 Daija Univ ersity of [facility] Respiratory rate 2021-06-04 20:47:00 18 /min [facility] Body height 2021-06-04 20:47:00 182.9 cm Universi ty [facility] Body weight 2021-06-04 20:47:00 96.253 kg [facility]i ty [facility] BMI 2021-06-04 20:47:00 28.78 kg/m2 Universi ty [facility] Oxygen saturation in 2021-06-04 20:47:00 95 /min [facility] Arterial blood by [facility] Pulse oximetry Branch BP Diastolic 2019-04-07 00:00:00 60 mm[Hg] [facility] Height 2019-04-07 00:00:00 71 [in_i] [facility] BMI (Body Mass 2019-04-07 00:00:00 28.5 kg/m2 [facility] BP Systolic 2019-04-07 00:00:00 128 mm[Hg] [facility] Body Weight 2019-04-07 00:00:00 204.2 [lb_av] [facility] BP Diastolic 2019-03-24 00:00:00 92 mm[Hg] [facility] Height 2019-03-24 00:00:00 71 [in_i] [facility] BMI (Body Mass 2019-03-24 00:00:00 28.6 kg/m2 [facility] BP Systolic 2019-03-24 00:00:00 140 mm[Hg] [facility] Body Weight 2019-03-24 00:00:00 205 [lb_av] [facility] BP Diastolic 2018-08-24 00:00:00 82 mm[Hg] [facility] Height 2018-08-24 00:00:00 71 [in_i] [facility] BMI (Body Mass 2018-08-24 00:00:00 29.1 kg/m2 [facility] BP Systolic 2018-08-24 00:00:00 124 mm[Hg] [facility] Body Weight 2018-08-24 00:00:00 209 [lb_av] [facility] BP Diastolic 2018-07-01 00:00:00 74 mm[Hg] [facility] Height 2018-07-01 00:00:00 71 [in_i] [facility] BMI (Body Mass 2018-07-01 00:00:00 29.4 kg/m2 [facility] Family Index) Practice BP Systolic 2018-07-01 00:00:00 110 mm[Hg] [facility] Body Weight 2018-07-01 00:00:00 210.5 [lb_av] [facility] Procedures Procedure Date / Time Performing Clinician Source Performed SLEEP STUDY DATA REPORT 2021-08-08 05:01:00 Doctor Unassigned, [place] [facility] [place] [facility] VACCINATIONS - CONSENTS, 2021-02-19 05:01:00 Doctor Unassigned, [facility] ELIGIBILITY, HISTORY [place] [facility] X-[facility] HIP UNLIATERAL (2-3 2019-03-24 00:00:00 arely [facility]) Practice Cardiac Catheterization 2018-08-12 00:00:00 [facility] X-RAY OF KNEE 3 VIEW 2018-06-08 00:00:00 [facility] Other 2011-05-24 00:00:00 [facility] 2007-05-24 00:00:00 [facility] ly Practice Cardiac Surgery 1986-05-24 00:00:00 [facility] ly Practice Foot/toes Surgery [facility] Procedure Practice Tonsillectomy [facility] Plan of Care Planned Activity Planned Date Details Comments Source Future Scheduled Test 2022-12-23 [facility] 21:53:28 malignant neoplasm of colon (procedure) [code = 643430939] Future Scheduled Test 2022-12-23 [facility] 21:53:28 malignant neoplasm of colon (procedure) [code = 693548600] Future Scheduled Test 2022-12-23 [facility] 21:53:28 malignant neoplasm of colon (procedure) [code = 234082282] Future Scheduled Test 2022-12-23 COVID-19 VACCINE (#1) [facility] 21:53:28 [code = COVID-19 VACCINE (#1)] Future Scheduled Test 2022-12-23 [facility] 21:53:28 malignant neoplasm of colon (procedure) [code = 736994616] Future Scheduled Test 2022-12-23 [facility] 21:53:28 malignant neoplasm of colon (procedure) [code = 574992205] Future Scheduled Test 2022-12-23 SHINGLES VACCINES (1 [facility] 21:53:28 of 2) [code = SHINGLES VACCINES (1 of 2)] Future Scheduled Test 2022-12-23 65+ PNEUMOCOCCAL Me [facility] 21:53:28 VACCINE (1 - PCV) [code = 65+ PNEUMOCOCCAL VACCINE (1 - PCV)] Future Scheduled Test 2022-12-23 INFLUENZA VACCINE [facility] 21:53:28 [code = INFLUENZA VACCINE] Instructions [facility] Family Practice Encounters Start End Encounter Admission Attending Care Care Encounter Source Date/Time Date/Time Type Type Clinicians Facility Department ID 2021-09-10 2021-09-10 Outpatient R ERNESTINA ESCOBAR [facility] [id number] Univers 15:40:00 15:40:00 ERNESTINA ESCOBAR [facility] 2021-08-08 2021-08-08 Band Bias Machine Operator 1, [facility] Sleep Lab Bed [email or web address] 1. [id number] Univers 19:30:00 22:00:00 Visit Ernestina Escobar 350.1.13. 10 ity of [place] 4.2.7.2.686 [facility] [id number] [facility] [address] Branch 2021-08-08 2021-08-08 Outpatient R ERNESTINA ESCOBAR [facility] [id number] Univers 19:30:00 19:30:00 ERNESTINA ESCOBAR [facility] 2021-08-08 2021-08-08 Orders Doctor LE [id number] Univers 00:00:00 00:00:00 Only Unassigned, CASH [id number] ity of [place] [facility] 4.2.7.2.686 [facility] [id number] [facility] 00[address] Branch 2021-08-06 2021-08-06 Outpatient R [facility] [id number] Univers 09:30:00 09:30:00 ity [facility] 2021-07-12 2021-07-12 Outpatient R DESHAWN ESCOBARSCDavid [facility] [id number] Univers 19:30:00 19:30:00 DESHAWN ESCOBARSCDavid [facility] 2021-07-10 2021-07-10 Outpatient R [facility] [id number] Univers 08:00:00 08:00:00 itUT [facility] 2021-06-04 2021-06-04 [facility] [id number] Univers 14:40:00 15:09:18 DESHAWN ESCOBARSCDavid [facility] 2021-06-04 2021-06-04 [facility] [id number] Univers 14:40:00 15:00:00 Visit Ernestina OCHOA 350.1.13.10 ity [facility] 4[place]2.7.2.686 [place] [id number] Hi dical ON LICENSE OF [facility] 085 [facility] 2021-06-04 2021-06-04 Outpatient R DESHAWN ESCOBARSCDavid [facility] [id number] Univers 14:40:00 14:40:00 DESHAWN ESCOBARSCDavid [facility] 2021-02-19 2021-02-19 Orders Doctor REY [id number] Univers 00:00:00 00:00:00 Only Unassigned, CASH 350.1.13.10 ity of [facility] [id number] Will as [id number] [address] 2020-07-24 2020-07-24 Outpatient Bui_Q_WAG VFP VFP [id number] [facility] 11:29:00 11:29:00 [id number] Family Practic e 2020-04-07 2020-04-07 Outpatient Bui_Q_WAG VFP VFP [id number] [facility] 02:46:00 02:46:00 [id number] Family Practic e 2019-06-07 2019-06-07 Outpatient Bui_Q VFP VFP [id number] [facility] 12:12:00 12:12:00 [id number] Family Practic e 2019-04-07 2019-04-07 Annabella Stewart [facility] [place] - [id number] [facility] 00:00:00 00:00:00 [facility] [id number] Fabiano allison MD: [id number] Medical - Pract [address] [place], [address], [place] [address] , Ph. 2019-03-24 2019-03-24 Annabella Stewart [facility] [place] - [id number] [facility] 00:00:00 00:00:00 [facility] [address] Fabiano allison MD: [id number] Medical - Pract ic [place], [address], [place] [address] , Ph. 2018-08-24 2018-08-24 Zacarias [facility] [place] - [id number] [facility] 00:00:00 00:00:00 [facility] [address] Family [place], Family Practic MD: [id number] Practice - e [place], [address], [place] [address] , Ph. 2018-07-01 2018-07-01 Annabella Stewart [facility] [place] - [id number] [facility] 00:00:00 00:00:00 [facility] [id number] Fabiano allison MD: [id number] Family Practic [place], Practice - [address], [place] [address] , Ph. 2018-06-08 2018-06-08 Enrique Felix [facility] [place] - [id number] [facility] 00:00:00 00:00:00 MD Corinne: [facility] [address] Famil y [address] Family Practic [place], Practice - [address], [place] [address] , Ph. Results Test Description Test Time Test Comments Results Result Comments Source Urinalysis complete W Reflex Culture panel - Urine 2 07:25:00 Test Item Value Reference Range Interpretation Comme nts color (test code = color) yellow yellow appearance (test code = appearance) clear clear specific gravity (test code = specific gravity) 1.021 1.001- 1.035 pH (test code = pH) < or = 5.0 5.0-8.0 glucose (test code = glucose) negative negative bilirubin (test code = bilirubin) negative negative ketones (test code = ketones) negative negative occult blood (test code = occult blood) negative negative protein (test code = protein) negative negative nitrite (test code = nitrite) negative negative leukocyte esterase (test code = leukocyte esterase) negative ne gative WBC (test code = WBC) none seen < or = 5 RBC (test code = RBC) none seen < or = 2 squamous epithelial cells (test code = squamous epithelial none see n < or = 5 cells) bacteria (test code = bacteria) none seen none seen hyaline cast (test code = hyaline cast) none seen none seen [facility] Urine by [id number] 07:25:00 Test Item Value Reference Range Interpretation Comments reflexive urine culture no culture indicated (test code = reflexive urine culture) [facility]
--- NOTE | 2023-01-11 12:28 | RAD REPORT ---
EXAM DESCRIPTION: RAD - Chest Single View - 01/11/2023 12:22 pm CLINICAL HISTORY: DYSPNEA COMPARISON: Chest Single View dated 08/12/2018; Chest Pa And Lat (2 Views) dated 11/11/2016; Chest Sin gle View dated 09/02/2016; Chest Single View dated 08/23/2016 FINDINGS: Lines: None. Lungs: No evidence of edema or pneumonia. Pleural: No significant pleural effusions or pneumothorax. Cardiac: Mild cardiomegaly. Loop recorder. Sternotomy. Mediastinum: Within normal limits. Bones: No acute fractures. Other: None IMPRESSION: No acute cardiopulmonary disease.
[2023-01-11 12:36] LABS: Absolute Lymphocytes (CBC) 1.3 K/uL (0.7-4.9); Hematocrit 40.8 % (39.6-49.0); Lymphocytes % 23.5 % (15.3-44.8); MCV 88.5 fL (80-100); MPV 9.1 fL (7.6-11.3); Platelets 196 thou/uL (152-406); RBC Red Blood Cell Count 4.61 M/uL (4.33-5.43)
[2023-01-11] MEDS ORDERED: NA CHLORIDE 0.9% 1,000 ML ONE (12:40)
[2023-01-11 12:57] LABS: Albumin 3.6 g/dL (3.4-5.0); Bilirubin Direct 0.3 mg/dL (0-0.2); Bilirubin Indirect, Calculated 1.1 mg/dL (0.2-0.8); Bilirubin Total 1.4 mg/dL (0.2-1.0); Magnesium 2.3 mg/dL (1.6-2.4); Protein, Total 7.6 g/dL (6.4-8.2)
[2023-01-11 13:04] LABS: Protime INR 1.19
--- NOTE | 2023-01-11 13:51 | EDPHYS ---
Physician Documentation [facility] Name: Ranulfo Manuel Age: 72 yrs Sex: Male : 1950 Arrival Date: 01/11/2023 Time: 11:33 Bed 13 Private MD: ED Physician Anders Bond HPI: 01/11 13:18 This 72 yrs old Male presents to ER via Wheelchair with complaints of Low Heart Rate, cp3 Dizziness. 13:18 Patient is a 72-year-old male with a history of hypertension, remote history of cp3 [id number]-[id number] status postsurgical ablation remotely who presents to the ED secondary to low blood pressure and heart rate for the last 2 days patient reports that he has been intermittently dizzy and near syncopal with standing. Patient near syncopal event was sitting feeling dizzy and lightheaded.. The patient denies chest pain, shortness of breath, fever, chills. Historical: - Allergies: 11:43 No Known Allergies; ll1 - PMHx: 11:43 Atrial Fib; Hypothyroidism; WPW; ll1 - PSHx: 11:43 Coronary artery bypass graft; ll1 - Immunization history:: Adult Immunizations up to date. - Social history:: Smoking status: Patient denies any tobacco usage or history of. - Family history:: not pertinent. ROS: 13:18 Constitutional: Negative for fever, chills, and weight loss, Eyes: Negative for injury, cp3 pain, redness, and discharge, ENT: Negative for injury, pain, and discharge, Neck: Negative for injury, pain, and swelling, Cardiovascular: Negative for chest pain, palpitations, and edema, Respiratory: Negative for shortness of breath, cough, wheezing, and pleuritic chest pain, Abdomen/GI: Negative for abdominal pain, nausea, vomiting, diarrhea, and constipation, Back: Negative for injury and pain, : Negative for injury, bleeding, discharge, and swelling, Skin: Negative for injury, rash, and discoloration, Psych: Negative for depression, anxiety, suicide ideation, homicidal ideation, and hallucinations, Allergy/Immunology: Negative for hives, rash, and allergies, Endocrine: Negative for neck swelling, polydipsia, polyuria, polyphagia, and marked weight changes, Hematologic/Lymphatic: Negative for swollen nodes, abnormal bleeding, and unusual bruising. 13:18 Neuro: Positive for dizziness, near syncope, weakness. Exam: 13:18 Constitutional: This is a well developed, well nourished patient who is awake, alert, cp3 and in no acute distress. Head/Face: Normocephalic, atraumatic. Eyes: Pupils equal round and reactive to light, extra-ocular motions intact. Lids and lashes normal. Conjunctiva and sclera are non-icteric and not injected. Cornea within normal limits. Periorbital areas with no swelling, redness, or edema. ENT: Nares patent. No nasal discharge, no septal abnormalities noted. Tympanic membranes are normal and external auditory canals are clear. Oropharynx with no redness, swelling, or masses, exudates, or evidence of obstruction, uvula midline. Mucous membranes moist. Neck: Trachea midline, no thyromegaly or masses palpated, and no cervical lymphadenopathy. Supple, full range of motion without nuchal rigidity, or vertebral point tenderness. No Meningismus. Chest/axilla: Normal chest wall appearance and motion. Nontender with no deformity. No lesions are appreciated. Cardiovascular: Regular rate and rhythm with a normal S1 and S2. No gallops, murmurs, or rubs. Normal PMI, no JVD. No pulse deficits. Respiratory: Lungs have equal breath sounds bilaterally, clear to auscultation and percussion. No rales, rhonchi or wheezes noted. No increased work of breathing, no retractions or nasal flaring. Abdomen/GI: Soft, non-tender, with normal bowel sounds. No distension or tympany. No guarding or rebound. No evidence of tenderness throughout. Back: No spinal tenderness. No costovertebral tenderness. Full range of motion. Skin: Warm, dry with normal turgor. Normal color with no rashes, no lesions, and no evidence of cellulitis. MS/ Extremity: Pulses equal, no cyanosis. Neurovascular intact. Full, normal range of motion. Neuro: Awake and alert, GCS 15, oriented to person, place, time, and situation. Cranial nerves II-XII grossly intact. Motor strength 5/5 in all extremities. Sensory grossly intact. Cerebellar exam normal. Normal gait. Vital Signs: 11:41 BP 103 / 71; Pulse 54; Resp 16; Temp 97.1; Pulse Ox 100% ; Weight 94.35 kg; Height 5 ll1 ft. 11 in. ; Pain 0/10; 12:37 BP 114 / 72 RA Supine (auto/reg); Pulse 65; Resp 18; Pulse Ox 97% on R/A; ko1 12:38 BP 123 / 82 RA Sitting (auto/reg); Pulse 69; Resp 16; Pulse Ox 97% on R/A; ko1 12:39 BP 134 / 77 RA Standing (auto/reg); Pulse 63; Resp 16; Pulse Ox 99% on R/A; ko1 13:00 BP 109 / 73; Pulse 66; Resp 15; Pulse Ox 98% ; ko1 15:00 BP 114 / 67; Pulse 68; Resp 16; Pulse Ox 99% ; ko1 17:00 BP 126 / 79; Pulse 67; Resp 16; Pulse Ox 98% ; ko1 11:41 Body Mass Index 29.01 (94.35 kg, 180.34 cm) ll1 11:41 Pain Scale: Adult ll1 Procedures: 13:18 Performed EKG interpreted by me: Patient with normal sinus rhythm rate of 65, cp3 first-degree AV block, no evidence of acute LA, QT 442. MDM: 11:38 Patient medically screened. cp3 13:18 Differential diagnosis: cardiac arrhythmia, generalized weakness, hypovolemia, cp3 idiopathic dizziness, near-syncope, syncope. Data reviewed: vital signs, nurses notes. 13:43 Consideration of Admission/Observation Patient was admitted/placed on observation. cp3 Escalation of care including admission/observation considered. Management of patient was discussed with the following: Hospitalist: patient placed in obs to Dr. Pritchett. I considered the following discharge prescriptions or medication management in the emergency department Medications were administered in the Emergency Department. See MAR. Independent interpretation of the following test(s) in the Emergency Department EKG: See my EKG interpretation above X-Ray: My interpretation is Chest x-ray interpreted by me no acute cardiopulmonary process. patient ombudsperson: Rhythm Strip Interpretation Rate: 66BPM Rhythm: regular. 13:43 ED course: discussed plan of care with patient. cp3 14:41 ED course: Discussed case with Dr. Lambert. will accept patient in consultation. cp3 01/11 12:04 Order name: Basic Metabolic Panel; Complete Time: 13:16 cp3 01/11 13:17 Interpretation: Normal except: NA 138; K 4.0; CL 109; CO2 27; ANION GAP 6.0; GLUC 110; cp3 BUN 18; CRE 1.01; GFR 79; CA 8.7. 01/11 12:04 Order name: CBC with Diff; Complete Time: 13:16 cp3 01/11 13:17 Interpretation: WBC 5.70; RBC 4.61; HGB 14.0; HCT 40.8; MCV 88.5; MCH 30.3; MCHC 34.2; cp3 PLT 196; RDW 14.0; MPV 9.1; DONOVAN% 64.4; LYM% 23.5; MN% 6.8; EOSINOPHIL % 4.0; BASO% 1.3; NEUT A 3.6; LYMA 1.3; MNA 0.4; EOSA 0.2; BASOA 0.1. 01/11 12:04 Order name: D-Dimer; Complete Time: 13:16 cp3 01/11 13:17 Interpretation: D-DIMER 218. cp3 01/11 12:04 Order name: LFT's; Complete Time: 13:16 cp3 01/11 13:16 Interpretation: AST 20; ALT 25; ALK 101; BILIT 1.4; BILID 0.3; IBILI, CALC 1.1; TP 7.6; cp3 ALB 3.6; GLOB 4.0; A/G 0.9. 01/11 12:04 Order name: Magnesium; Complete Time: 13:16 cp3 01/11 13:17 Interpretation: MG 2.3. cp3 01/11 12:04 Order name: NT PRO-BNP; Complete Time: 13:16 cp3 01/11 13:16 Interpretation: NT PRO-BNP 207. cp3 01/11 12:04 Order name: PT-INR; Complete Time: 13:16 cp3 01/11 12:04 Order name: Troponin HS; Complete Time: 13:16 cp3 01/11 13:17 Interpretation: Troponin HS 6.0. cp3 01/11 17:58 Order name: Phosphorus; Complete Time: 18:01 EDMS 01/11 17:58 Order name: T4 Free; Complete Time: 18:01 EDMS 01/11 17:58 Order name: Magnesium; Complete Time: 18:01 EDMS 01/11 17:58 Order name: Thyroid Stimulating Hormone; Complete Time: 18:01 [facility] 01/12 02:55 Order name: CBC with Automated Diff EDAL 01/12 03:01 Order name: Basic Metabolic Panel [facility] 01/12 03:01 Order name: Lipid Profile [facility] 01/11 12:04 Order name: XRAY Chest (1 view); Complete Time: 13:16 cp3 01/11 13:17 Interpretation: [facility] Radiologist's [facility] [address] [place] [address] RADIOLOGY SERVICES REPORT Name: RANULFO MANUEL Acct Number: [id number] :1950 Age:72 Sex:M Ord Phys: Anders Bond MD Unit Number: [id number] [facility] Dr: NONE Status: REG ER ER Exam Date: 01/11/23 EXAM DESCRIPTION: RAD - Chest Single View - 01/11/2023 12:22 pm CLINICAL HISTORY: DYSPNEA COMPARISON: Chest Single View dated 08/12/2018; Chest Pa And Lat (2 Views) dated 11/11/2016; Chest Single View dated 09/02/2016; Chest Single View dated 08/23/2016 FINDINGS: Lines: None. Lungs: No evidence of edema or pneumonia. Pleural: No significant pleural effusions or pneumothorax. Cardiac: Mild cardiomegaly. Loop recorder. Sternotomy. Mediastinum: Within normal limits. Bones: No acute fractures. Other: None IMPRESSION: No acute cardiopulmonary disease. Signed By: Haseeb Griffin MD Signed AT: 01/11/23 1228 . 01/12 08:07 Order name: US [facility] 01/11 12:04 Order name: EKG; Complete Time: 12:05 3 01/11 12:04 Order name: Cardiac monitoring; Complete Time: 12:06 3 01/11 12:04 Order name: EKG - Nurse/Tech; Complete Time: 12:26 cp3 01/11 12:04 Order name: IV Saline Lock; Complete Time: 12:26 3 01/11 12:04 Order name: Labs collected and sent; Complete Time: 12:26 3 01/11 12:04 Order name: O2 Per Protocol; Complete Time: 12:06 3 01/11 12:04 Order name: O2 Sat Monitoring; Complete Time: 12:06 cp3 01/11 12:04 Order name: Orthostatic Blood Pressure; Complete Time: 12:39 cp3 Administered Medications: 12:39 Drug: NS 0.9% IV 1000 ml Route: IV; Rate: 1 bolus; Site: left antecubital; ko1 Disposition Summary: 01/11/23 13:50 Hospitalization Ordered Hospitalization Status: Observation cp3 Provider: Bertha Pritchett cp3 Condition: Stable cp3 Problem: new cp3 Symptoms: have improved cp3 Bed/Room Type: Standard 3 Location: [facility] ER HOLD(01/11/23 17:33) jl7 Room Assignment: ERHOLD-(01/11/23 17:33) jl7 Diagnosis - Syncope Near - dizziness, associated with low bp and heart rate(01/11/23 13:50) cp3 Forms: - Medication Reconciliation Form cp3 - SBAR form cp3 - Leadership Thank You Letter 3 Signatures: Dispatcher [employer] EDAnders Angel MD MD 3 Kirsten Youssef RN RN jl7 Sandra Olivier RN RN ll1 Eleanor Wilhelm RN RN ko1 Corrections: (The following items were deleted from the chart) 13:17 13:16 NA 138; K 4.0; CL 109; CO2 27; ANION GAP 6.0; GLUC 110; BUN 18; CRE 1.01; GFR 79; cp3 CA 8.7. cp3 13:50 13:50 Syncope Near - dizziness cp3 cp3 17:33 13:50 Telemetry/MedSurg (observation) cp3 jl7 17:33 13:50 cp3 jl7
--- NOTE | 2023-01-11 13:51 | ER ---
Nurse's Notes [facility] Name: Ranlufo Manuel Age: 72 yrs Sex: Male : 1950 Arrival Date: 01/11/2023 Time: 11:33 Bed 13 Private MD: Diagnosis: Syncope Near-dizziness, associated with low bp and heart rate Presentation: 01/11 11:41 Chief complaint: Patient states: Near syncope for 2 days. BP 87/43, HR upper 30's low ll1 40's. Coronavirus screen: Vaccine status: Patient reports receiving the 2nd dose of the covid vaccine. Client denies travel out of the [place] in the last 14 days. At this time, the client does not indicate any symptoms associated with coronavirus-19. Ebola Screen: Patient denies travel to an Ebola-affected area in the 21 days before illness onset. Initial Sepsis Screen: Does the patient meet any 2 criteria? No. Patient's initial sepsis screen is negative. Does the patient have a suspected source of infection? No. Patient's initial sepsis screen is negative. Risk Assessment: Do you want to hurt yourself or someone else? Patient reports no desire to harm self or others. Onset of symptoms was January 10, 2023. 11:41 Method Of Arrival: Wheelchair ll1 11:41 Acuity: GIN 2 ll1 Historical: - Allergies: 11:43 No Known Allergies; ll1 - PMHx: 11:43 Atrial Fib; Hypothyroidism; WPW; ll1 - PSHx: 11:43 Coronary artery bypass graft; ll1 - Immunization history:: Adult Immunizations up to date. - Social history:: Smoking status: Patient denies any tobacco usage or history of. - Family history:: not pertinent. Screenin:00 [facility] ED Fall Risk Assessment (Adult) History of falling in the last 3 months, ko1 including since admission No falls in past 3 months (0 pts) Confusion or Disorientation No (0 pts) Intoxicated or Sedated No (0 pts) Impaired Gait No (0 pts) Mobility Assist Device Used No (0 pt) Altered Elimination No (0 pt) Score/Fall Risk Level 0 - 2 = Low Risk Oriented to surroundings, Maintained a safe environment, Educated pt \T\ family on fall prevention, incl call for assistance when getting out of bed, Assessed \T\ reinforced patient's understanding of fall precautions, Provided non-skid footwear, Hourly rounding (assess needs \T\ fall precautionary measures) done, Used ambulatory aids as needed (educated on \T\ assisted with), Used gait belt as appropriate. Abuse screen: Denies threats or abuse. Denies injuries from another. Nutritional screening: No deficits noted. Tuberculosis screening: No symptoms or risk factors identified. Assessment: 12:30 General: Appears in no apparent distress. comfortable, Behavior is calm, cooperative, ko1 appropriate for age. Pain: Denies pain. Neuro: Reports dizziness. Cardiovascular: Reports low heart rate. Respiratory: No deficits noted. GI: No deficits noted. : No deficits noted. EENT: No deficits noted. Derm: No deficits noted. Musculoskeletal: No deficits noted. Vital Signs: 11:41 BP 103 / 71; Pulse 54; Resp 16; Temp 97.1; Pulse Ox 100% ; Weight 94.35 kg; Height 5 ll1 ft. 11 in. ; Pain 0/10; 12:37 BP 114 / 72 RA Supine (auto/reg); Pulse 65; Resp 18; Pulse Ox 97% on R/A; ko1 12:38 BP 123 / 82 RA Sitting (auto/reg); Pulse 69; Resp 16; Pulse Ox 97% on R/A; ko1 12:39 BP 134 / 77 RA Standing (auto/reg); Pulse 63; Resp 16; Pulse Ox 99% on R/A; ko1 13:00 BP 109 / 73; Pulse 66; Resp 15; Pulse Ox 98% ; ko1 15:00 BP 114 / 67; Pulse 68; Resp 16; Pulse Ox 99% ; ko1 17:00 BP 126 / 79; Pulse 67; Resp 16; Pulse Ox 98% ; ko1 11:41 Body Mass Index 29.01 (94.35 kg, 180.34 cm) ll1 11:41 Pain Scale: Adult ll1 ED Course: 11:33 Patient arrived in ED. rg4 11:36 Anders Bond MD is Attending Physician. cp3 11:43 Triage completed. ll1 11:44 Arm band placed on. ll1 11:59 Eleanor Wilhelm, RANJIT is Primary Nurse. ko1 12:23 Inserted saline lock: 20 gauge in left antecubital area, using aseptic technique. Blood ko1 collected. 12:24 XRAY Chest (1 view) In Process Unspecified. EDMS 12:26 Basic Metabolic Panel Sent. ko1 12:26 CBC with Diff Sent. ko1 12:26 D-Dimer Sent. ko1 12:26 LFT's Sent. ko1 12:26 Magnesium Sent. ko1 12:26 NT PRO-BNP Sent. ko1 12:26 PT-INR Sent. ko1 12:27 Troponin HS Sent. ko1 13:00 Patient has correct armband on for positive identification. Bed in low position. Call ko1 light in reach. Side rails up X2. Provided Education on: na. Client placed on continuous cardiac and pulse oximetry monitoring. NIBP monitoring applied. predictive maintenance specialist on. Door closed. Noise minimized. Lights dimmed. Warm blanket given. 13:49 Bertha Pritchett MD is Hospitalizing Provider. cp3 17:00 No provider procedures requiring assistance completed. Patient admitted, IV remains in ko1 place. Administered Medications: 12:39 Drug: NS 0.9% IV 1000 ml Route: IV; Rate: 1 bolus; Site: left antecubital; ko1 Medication: 17:00 VIS not applicable for this client. ko1 Outcome: 13:50 Decision to Hospitalize by Provider. cp3 19:10 Condition: stable ha1 19:10 Admitted to ER Hold. Please see [facility] for further documentation. ha1 19:10 Discharge instructions given to patient, Instructed on the need for admit, Demonstrated understanding of instructions. 01/12 16:10 Patient left the ED. mb9 Signatures: Dispatcher [employer] EDMS Anders Bond MD MD cp3 Meghan Holliday 4 Sandra Olivier RN RN 1 Giovanna Cunningham RN RN ha1 Eleanor Wilhelm RN RN ko1 Jigna Ellis RN RN mb9
--- NOTE | 2023-01-11 15:28 | EKG ---
Test Date: 2023-01-11 Test Time: 12:29:32 Retail Analytics Manager: GUERO MEASUREMENT RESULTS: Intervals: Rate: 65 MO: 268 QRSD: 94 QT: 442 QTc: 459 [place]: P: 59 MO: 268 QRS: 96 T: 5 INTERPRETIVE STATEMENTS: Sinus rhythm with 1st degree AV block Otherwise normal ECG Compared to ECG 08/13/2018 10:00:11 Right-axis deviation no longer present T-wave abnormality no longer present Possible ischemia no longer present Prolonged QT interval no longer present Electronically Signed On 01-11-23 15:28:11 CDT by Nilson Lambert
[2023-01-11] MEDS ORDERED: TRAMADOL HCL 50 MG TAB PO PRN (15:59)
[2023-01-11] MEDS ORDERED: ACETAMINOPHEN 325 MG TABLET PO PRN (15:59)
[2023-01-11] MEDS ORDERED: ONDANSETRON 4 MG/2 ML VIAL IV PRN (16:15)
--- NOTE | 2023-01-11 16:25 | P.HP ---
Certification for Inpatient Patient admitted to: Observation With expected LOS: <2 Midnights Patient will require the following post-hospital care: None Practitioner: I am a practitioner with admitting privileges, knowledge of patient current condition, hospital course, and medical plan of care. Services: Services provided to patient in accordance with Admission requirements found in Title 42 Section 412.3 of the Code of Federal Regulations Patient History Date of Service: 01/11/23 Reason for admission: Dizziness History of Present Illness: Patient is a 72-year-old with a past medical history significant for WPW status post ablation, A-fib, hypothyroidism who presents with complaint of dizziness that has been ongoing for the past 2 days. Patient reported that he has intermittent dizziness in the last 5 months. Patient also reported that his heart rate and blood pressure has been low. Patient reported that he had a near syncopal episode this am and his watch indicated a heart rate of 39 bpm. Patient denies any other signs or symptoms. Symptoms are aggravated or relieved by nothing. Patient decided to present to the hospital due to worsening symptoms. Allergies No Known Allergies Allergy (Verified 08/23/16 12:50) Home Medications: Irbesartan [Avapro] 75 mg PO DAILY 08/12/18 Levothyroxine [Synthroid*] 25 mcg PO [id number] 08/12/18 Rivaroxaban [Xarelto*] 20 mg PO BEDTIME 08/12/18 Sotalol HCl [Sotalol AF] 1 tab PO BID 08/12/18 Colchicine [Colcrys *] 0.6 mg PO BID #60 tab 08/15/18 - Past Medical/Surgical History Diabetic: No -: WPW S/P ablation in 1986 -: atrial fibrillation -: hypothyroidism -: melanoma -: WPW ablation -: MELONOMA REMOVED TO BACK - Family History Mother -: Heart disease - Social History Smoking Status: Never smoker Alcohol use: Yes CD- Drugs: No Caffeine use: Yes Place of Residence: Home Review of Systems General: Unremarkable Eyes: Unremarkable ENT: Unremarkable Cardiovascular: Unremarkable Gastrointestinal: Unremarkable Genitourinary: Unremarkable Musculoskeletal: Unremarkable Integumentary: Unremarkable Neurological: Other (Near syncope, Dizziness) Lymphatics: Unremarkable Physical Examination - Physical Exam General: Alert, In no apparent distress, Oriented x3, Cooperative HEENT: Atraumatic, PERRLA, Mucous membr. moist/pink, EOMI, Sclerae nonicteric Neck: Supple, 2+ carotid pulse no bruit, No LAD, Without JVD or thyroid abnormality Respiratory: Clear to auscultation bilaterally, Normal air movement Cardiovascular: No edema, Normal S1 S2, Irregular heart rate/rhythm Capillary refill: <2 Seconds Gastrointestinal: Normal bowel sounds, No tenderness Musculoskeletal: No tenderness Integumentary: No rashes Neurological: Normal speech, Normal tone, Normal affect Lymphatics: No axilla or inguinal lymphadenopathy - Studies Laboratory Data (last 24 hrs) 01/11/23 01/11/23 01/11/23 12:20 12:20 12:20 WBC 5.70 Hgb 14.0 Hct 40.8 Plt Count 196 PT 13.1 H INR 1.19 Sodium 138 Potassium 4.0 BUN 18 Creatinine 1.01 Glucose 110 H Magnesium 2.3 Total Bilirubin 1.4 H AST 20 ALT 25 Alkaline Phosphatase 101 Assessment and Plan - Plan --Near syncope. Cardiology consulted. We will get some orthostatic blood pressures. Echocardiogram pending to assess cardiac structures and functions. Doppler to rule out any carotid artery stenosis. Fall precautions. We will a wait further recommendations from cigarette inspector. -- History of WPW. Status post ablation. Telemetry to monitor for any malignant arrhythmia. --Atrial fibrillation. Continue Xarelto. --Hypothyroidism. Continue home medication. --CKD 2. Stable. We will continue to monitor renal functions. --DVT prophylaxis with Xarelto. Discharge Plan: Home Plan to discharge in: 48 Hours - Advance Directives Does patient have a Living Will: Yes Does patient have a Durable POA for Healthcare: No - Code Status/Comfort Care Code Status Assessed: Yes Physician Review: Patient Assessed, Agree with Above Assessment and Plan Critical Care: No
[2023-01-11 17:58] LABS: Magnesium 2.3 mg/dL (1.6-2.4); Phosphorus 2.4 mg/dL (2.5-4.9); Thyroid Stimulating Hormone 2.59 uIU/mL (0.358-3.740)
[2023-01-11] MEDS ORDERED: RIVAROXABAN 20 MG TABLET PO SCH (21:00)
[2023-01-11] MEDS ORDERED: RIVAROXABAN 20 MG TABLET PO ONE (22:17)
--- NOTE | 2023-01-12 02:15 | CON ---
Date of Consultation: 01/11/2023 Reason For Consultation: Symptomatic bradycardia. History Of Present Illness: This is a 72-year-old male with history of WPW status post ablation long time ago, history of atrial fibrillation status post ablation as well, hypothyroidism, and hypertens ion. The patient presented to the emergency room because of significant dizziness. He apparently wa s on sotalol for atrial fibrillation and his heart rate was in the low 30s, dizzy constantly lately, and he was seen by EP and they were thinking to put him on flecainide, but an ischemia workup was in the process. At this point, he has no chest pain. His heart rate back up in the mid 60s and he is f eeling better. Past Medical History: As outlined above in the HPI. Medications: Refer reconciliation sheet for detailed list. Allergies: NO KNOWN DRUG ALLERGIES. Family History: No premature coronary artery disease or cancer. Social History: Does not smoke or drink. Does not use any drugs. Review of Systems: All systems were reviewed and they were negative except as mentioned in the HPI. Physical Examination: Vital signs: Reviewed. Head and Neck: Pupils are equal, reactive to light. Intact eye movements. No JVD. No cervical lym phadenopathy. Neck is supple. Thyroid is not enlarged. Lungs: Clear to auscultation bilaterally. No rhonchi, wheezing, or crackles. No accessory muscle u se. Heart: Irregularly irregular. No extra sounds. Abdomen: Soft, nontender. Bowel sounds positive. No organomegaly. No masses or hernia. No rigidi ty or rebound. Extremities: No edema, clubbing, or cyanosis. Intact pulses. Skin: No rashes. Neurologic: Alert, awake, oriented x3. No acute focal associated deficits. Lymph Nodes: No cervical or axillary lymphadenopathy. Investigations: BUN 18, creatinine 1.0. TSH is 2.5. NT-proBNP is 207. Troponin is negative and he moglobin is 14. Assessment/recommendation: 1.Dizziness due to significant bradycardia. The patient has atrial fibrillation with slow ventricul ar response. Discontinue sotalol. Monitor off sotalol and may be try a lower dose of sotalol at 40 mg once his heart rate is back up, and if this fails, then his only option would be a pacemaker as a backup, plus sotalol again, and continue Xarelto. 2.Hypertension. Blood pressure is controlled. Continue home medications. 3.Elevated NT-proBNP, probably chronic diastolic heart failure. He is euvolemic. We will continue to monitor. SR/MODL Voice ID: [id number] Report ID: [id number]
[2023-01-12 02:49] LABS: Absolute Lymphocytes (CBC) 2.1 K/uL (0.7-4.9); Hematocrit 39.8 % (39.6-49.0); Lymphocytes % 28.2 % (15.3-44.8); MCV 88.6 fL (80-100); MPV 9.1 fL (7.6-11.3); Platelets 171 thou/uL (152-406); RBC Red Blood Cell Count 4.49 M/uL (4.33-5.43)
[2023-01-12 03:00] LABS: Potassium 4.2 mEq/L (3.5-5.1)
[2023-01-12 05:57] VITALS: TEMP 98.2
[2023-01-12] MEDS ORDERED: PNEUMOCOCCAL VACCINE 0.5 ML IMVAC ONE (08:00)
--- NOTE | 2023-01-12 08:07 | RAD REPORT ---
EXAM DESCRIPTION: - CP - 01/11/2023 11:35 pm CLINICAL HISTORY: Near Syncope COMPARISON: No comparisons TECHNIQUE: Real-time sonographic evaluation of both carotid systems was performed. Doppler interroga tion was performed with waveform tracing bilaterally. FINDINGS: Normal high resistance waveforms are noted in both external carotid arteries. The common c arotid arteries and internal carotid arteries show normal low resistance waveforms. No significant plaque formation is seen. Peak systolic and end diastolic velocity values and the ICA/ CCA ratios are in the non-hemodynamically significant range. Antegrade flow seen in both vertebral arteries. IMPRESSION: No significant atherosclerotic changes noted. No evidence of a hemodynamically significant stenosis.
[2023-01-12] MEDS ORDERED: ASPIRIN 81 MG CHEWABLE TABLET ONE (08:47)
[2023-01-12] MEDS ORDERED: ASPIRIN 81 MG CHEWABLE TABLET PO SCH (09:00)
[2023-01-12] MEDS ORDERED: SOTALOL HCL 80 MG TAB PO ONE (10:22)
[2023-01-12] MEDS ORDERED: SOTALOL HCL 80 MG TAB ONE (10:39)
[2023-01-12 11:14] VITALS: BMI 29.0
[2023-01-12 13:36] VITALS: BP 131/85
[2023-01-12 16:28] VITALS: O2SAT 98
--- NOTE | 2023-01-12 17:30 | PN ---
Date of Progress Note: 01/12/2023 Subjective: Seen by bedside. Doing clinically well. He is maintaining sinus rhythm on 40 mg of sot alol. Review of Systems: No chest pain, shortness of breath, orthopnea, cough. No nausea, vomiting, diarrhea. All other syst ems reviewed and they were negative. Physical Examination: Vital Signs: Reviewed. Head and Neck: Pupils are equal, reactive to light. Intact eye movements. No JVD. No cervical lym phadenopathy. Neck is supple. Thyroid is not enlarged. Lungs: Clear to auscultation bilaterally. No rhonchi, wheezing, or crackles. No accessory muscle u se. Heart: Regular rate and rhythm. No extra sounds. Abdomen: Soft, nontender. Bowel sounds positive. No organomegaly. No masses or hernia. No rigidi ty or rebound. Extremities: No edema, clubbing, or cyanosis. Intact pulses. Skin: No rash. Neurologic: Alert, awake, oriented x3. No acute focal deficits appreciated. Investigations: BUN 20, creatinine 0.92, hemoglobin is 13.6, and TSH is normal. Assessment And Recommendations: 1.Severe bradycardia due to sotalol, dose was decreased to 40 mg twice a day and he is tolerating it very well. Explained to him if this regimen works well for him, then no further action is needed, b ut if he goes bradycardic on the sotalol 40, then a pacemaker will be required and after the third do se of sotalol 40 mg, the patient can go home and follow up with me as an outpatient and we will carry the management plan through. 2.Dizziness due to bradycardia and it has resolved. 3.Hypertension. Blood pressure is controlled. 4.Chronic diastolic heart failure. He is euvolemic. Cardiology will sign off and I will see the luther grajeda on outpatient basis. SR/MODL Voice ID: [id number] Report ID: [id number]
[2023-01-12] MEDS ORDERED: SOTALOL HCL 80 MG TAB PO SCH (18:00)
== END 2023-01-12 16:19 | disposition home or self-care (01) ==
LOC: ER 11:33 → ERHOLD 15:58
PROVIDERS: ADMIT Hospitalist; ATTEND Hospitalist
DX: R00.1 Bradycardia, unspecified (principal); R55 Syncope and collapse; E03.9 Hypothyroidism, unspecified; I48.11 Longstanding persistent atrial fibrillation; Z79.01 Long term (current) use of anticoagulants; N18.2 Chronic kidney disease, stage 2 (mild); I10 Essential (primary) hypertension; R79.89 Other specified abnormal findings of blood chemistry; Z23 Encounter for immunization; I45.6 Pre-excitation syndrome
CPT/HCPCS: 93005; 85025 ×2; 80048 ×2; 36415; 83735 ×2; 84100; 85610; 80061; 85379; 80076; 84443; 84484; 84439; 83880; 71045; 93880; 99285; J7030; G0378 ×3

== ENCOUNTER 2024-05-01 05:23 | Emergency (ER) | payer OTHER, MEDICARE ==
--- NOTE | 2024-05-01 07:15 | EDPHYS ---
Physician Documentation [facility] Name: Ranulfo Manuel Age: 73 yrs Sex: Male : 1950 Arrival Date: 05/01/2024 Time: 05:23 Bed DX4 Private MD: ED Physician Marge Hidalgo HPI: 05/01 07:18 This 73 yrs old Male presents to ER via Ambulatory with complaints of Sinus gb1 Congestion, Facial Swelling. Historical: - Allergies: 07:10 No Known Allergies; ss - PMHx: 07:10 Atrial Fib; Hypothyroidism; WPW; ss - PSHx: 07:10 Coronary artery bypass graft; ss Exam: 07:18 Constitutional: This is a well developed, well nourished patient who is awake, alert, gb1 and in no acute distress. Head/Face: +right frontal max sinus tenderness with light palpation Eyes: Pupils equal round and reactive to light, extra-ocular motions intact. Lids and lashes normal. Conjunctiva and sclera are non-icteric and not injected. Cornea within normal limits. Periorbital areas with no swelling, redness, or edema. ENT: Nares patent. No nasal discharge, no septal abnormalities noted. Tympanic membranes are normal and external auditory canals are clear. Oropharynx with no redness, swelling, or masses, exudates, or evidence of obstruction, uvula midline. Mucous membranes moist. Neck: Trachea midline, no thyromegaly or masses palpated, and no cervical lymphadenopathy. Supple, full range of motion without nuchal rigidity, or vertebral point tenderness. No Meningismus. Chest/axilla: Normal chest wall appearance and motion. Nontender with no deformity. No lesions are appreciated. Cardiovascular: Regular rate and rhythm with a normal S1 and S2. No gallops, murmurs, or rubs. Normal PMI, no JVD. No pulse deficits. Respiratory: Lungs have equal breath sounds bilaterally, clear to auscultation and percussion. No rales, rhonchi or wheezes noted. No increased work of breathing, no retractions or nasal flaring. Abdomen/GI: Soft, non-tender, with normal bowel sounds. No distension or tympany. No guarding or rebound. No evidence of tenderness throughout. Back: No spinal tenderness. No costovertebral tenderness. Full range of motion. Skin: Warm, dry with normal turgor. Normal color with no rashes, no lesions, and no evidence of cellulitis. MS/ Extremity: Pulses equal, no cyanosis. Neurovascular intact. Full, normal range of motion. Vital Signs: 07:10 BP 151 / 82; Pulse 90; Resp 17; Temp 97.6; Pulse Ox 99% on R/A; ss MDM: 07:07 Medical Screening Exam initiated gb1 07:19 Data reviewed: vital signs, nurses notes. gb1 05/01 06:15 Order name: SARS RAPID vc1 05/01 06:15 Order name: Flu vc1 Administered Medications: No medications were administered Disposition Summary: 05/01/24 07:15 Discharge Ordered Notes: Location: Home gb1 Condition: Stable gb1 Diagnosis - Acute maxillary sinusitis gb1 Followup: gb1 - With: Private Physician - When: - Reason: Recheck today's complaints Discharge Instructions: - Discharge Summary Sheet gb1 - Sinusitis, Adult, [id number] gb1 Forms: - Medication Reconciliation Form gb1 - Antibiotic Education gb1 - Prescription Opioid Use gb1 - Patient Portal Instructions gb1 - Leadership Thank You Letter gb1 Signatures: Dispatcher [employer] EDCorry Brewster RN RN ss Marge Hidalgo MD MD gb1 Corrections: (The following items were deleted from the chart) 06:15 06:15 SARS-COV-2 Antigen Rapid+I.LAB.BRZ ordered. EDMS EDMS 06:15 06:15 Influenza Screen (A \T\ B)+BA.LAB.BRZ ordered. EDMS EDMS
--- NOTE | 2024-05-01 07:15 | ER ---
Nurse's Notes [facility] Name: Ranulfo Manuel Age: 73 yrs Sex: Male : 1950 Arrival Date: 05/01/2024 Time: 05:23 Bed DX4 Private MD: Diagnosis: Acute maxillary sinusitis Presentation: 05/01 07:10 Chief complaint: Patient states: facial swelling and sinus congestion. Coronavirus ss screen: Client denies travel out of the [place] in the last 14 days. Ebola Screen: Patient denies exposure to infectious person. Patient denies travel to an Ebola-affected area in the 21 days before illness onset. Initial Sepsis Screen: Does the patient meet any 2 criteria? No. Patient's initial sepsis screen is negative. Does the patient have a suspected source of infection? No. Patient's initial sepsis screen is negative. Risk Assessment: Do you want to hurt yourself or someone else? Patient reports no desire to harm self or others. Onset of symptoms is unknown. 07:10 Method Of Arrival: Ambulatory ss 07:10 Acuity: GIN 3 ss Historical: - Allergies: 07:10 No Known Allergies; ss - PMHx: 07:10 Atrial Fib; Hypothyroidism; WPW; ss - PSHx: 07:10 Coronary artery bypass graft; ss Vital Signs: 07:10 BP 151 / 82; Pulse 90; Resp 17; Temp 97.6; Pulse Ox 99% on R/A; ss ED Course: 05:28 Patient arrived in ED. gm2 06:34 Flu Sent. vk 06:34 SARS RAPID Sent. vk 06:34 COVID swab sent to lab. Flu and/or RSV swab sent to lab. vk 07:05 Marge Hidalgo MD is Attending Physician. gb1 07:10 Triage completed. ss 07:10 Arm band placed on right wrist. ss 07:28 Corry Leigh, RANJIT is Primary Nurse. ss 07:28 No provider procedures requiring assistance completed. Patient did not have IV access ss during this emergency room visit. Administered Medications: No medications were administered Outcome: 07:15 Discharge ordered by . gb1 07:28 Discharged to home ambulatory, ss 07:28 Condition: good 07:28 Discharge instructions given to patient, Instructed on discharge instructions, follow up and referral plans. medication usage, Demonstrated understanding of instructions, follow-up care, medications, 07:28 Patient left the ED. ss Signatures: Corry Leigh, RANJIT RN Marge Anderson MD MD gb1 Kiersten Anand 2 Vee Blum
[2024-05-01 07:45] LABS: SARS-CoV-2 Antigen CONTROL BLUE LINE VIS/BG OK; SARS-CoV-2 Antigen Rapid Res Negative (Negative)
[2024-05-01 10:01] VITALS: BP 151/82; TEMP 97.6; O2SAT 99
== END 2024-05-01 07:28 | disposition home or self-care (01) ==
LOC: ER 05:23
DX: J01.00 Acute maxillary sinusitis, unspecified (principal); Z11.52 Encounter for screening for COVID-19; Z95.1 Presence of aortocoronary bypass graft
CPT/HCPCS: 36415; 87804; 87811; 99283

== ENCOUNTER 2024-08-18 21:55 | Inpatient (IN) | payer OTHER, MEDICARE ==
[2024-08-18] MEDS ORDERED: KETOROLAC 30 MG/ML INJ ONE (22:54)
[2024-08-18 23:47] LABS: Absolute Basophils 0.1 K/uL (0-0.5); Absolute Eosinophils 0.3 K/uL (0-0.5); Absolute Lymphocytes (CBC) 2.1 K/uL (0.7-4.9); Absolute Monocytes 0.7 K/uL (0.1-1.3); Absolute Neutrophil 4.5 K/uL (1.8-8.0); Basophils % 1.2 % (0-1.3); Eosinophils % 3.7 % (0-4.4); Hematocrit 39.8 % (39.6-49.0); Hemoglobin 13.7 g/dL (13.6-17.9); Lymphocytes % 27.5 % (15.3-44.8); MCH 30.1 pg (27.0-35.0); MCHC 34.5 g/dL (32.0-36.0); MCV 87.3 fL (80-100); MPV 9.5 fL (7.6-11.3); Monocytes % 8.9 % (3.3-12.3); Neutrophils % 58.7 % (41.7-73.7); Platelets 218 thou/uL (152-406); RBC Red Blood Cell Count 4.56 M/uL (4.33-5.43); Red Cell Distribution Width 14.1 % (12.1-15.2)
[2024-08-18 23:48] LABS: AST/SGOT 12 U/L (15-37); Albumin 3.7 g/dL (3.4-5.0); Albumin/Globulin Ratio 0.8 (1.1-1.8); Alkaline Phosphatase 145 U/L (45-117); Anion Gap 11.6 mEq/L (5.0-15.0); BUN Blood Urea Nitrogen 17 mg/dL (7-18); Bicarbonate 29 mEq/L (21-32); Bilirubin Total 0.7 mg/dL (0.2-1.0); Globulin 4.6 g/dL (2.3-3.5); Glomerular Filtration Rate 83 ml/min (=/>90); Glucose Level 101 mg/dL (74-106); Potassium 3.6 mEq/L (3.5-5.1); Protein, Total 8.3 g/dL (6.4-8.2); Sodium Level 140 mEq/L (136-145)
[2024-08-18 23:51] LABS: ALT/SGPT < 14 U/L (16-61)
[2024-08-19 00:23] LABS: Magnesium 2.3 mg/dL (1.6-2.4)
--- NOTE | 2024-08-19 00:25 | EDPHYS ---
Physician Documentation [facility] Name: Ranulfo Manuel Age: 74 yrs Sex: Male : 1950 Arrival Date: 08/18/2024 Time: 21:55 Bed 25 Private MD: ED Physician Vin Snell HPI: 08/18 22:25 This 74 yrs old Male presents to ER via Ambulatory with complaints of Abscess. cp 22:25 The patient presents with cellulitis of the left elbow. Description: erythematous, cp fluctuant, swollen, warm. 22:25 Onset: The symptoms/episode began/occurred about 10 days ago. cp 22:25 Associated signs and symptoms: Pertinent positives: erythema, swelling, Pertinent cp negatives: discharge, drainage, fever. Patient reports he was taking prescribed Cephalexin for 5 days and at [place] appt today started on Doxycycline. Historical: - Allergies: 22:20 No Known Allergies; bm8 - Home Meds: 22:20 metoprolol tartrate 25 mg Oral tab 0.5 tab once daily [Active]; Eliquis 5 mg oral bm8 tablet 2 tabs 2 times per day [Active]; - PMHx: 22:20 Atrial Fib; Hypothyroidism; WPW; bm8 - PSHx: 22:20 Coronary artery bypass graft; bm8 - Immunization history:: Adult Immunizations up to date. - Infectious Disease History:: Denies. - Social history:: Smoking status: Patient denies any tobacco usage or history of. ROS: 22:30 Constitutional: Negative for body aches, chills, fever, poor PO intake, cp 22:30 Eyes: Negative for injury, pain, redness, and discharge, cp 22:30 ENT: Negative for drainage from ear(s), ear pain, sore throat, difficulty swallowing, difficulty handling secretions, 22:30 Cardiovascular: Negative for chest pain, 22:30 Respiratory: Negative for cough, shortness of breath, wheezing, 22:30 MS/extremity: Positive for pain, swelling, tenderness, warmth, of the left elbow, Negative for injury or acute deformity, decreased range of motion, paresthesias, 22:30 Neuro: Negative for altered mental status, dizziness, headache, weakness, 22:30 All other systems are negative, Exam: 22:35 Constitutional: The patient appears in no acute distress, alert, awake, cp non-diaphoretic, non-toxic, well developed, well nourished, 22:35 Head/Face: Normocephalic, atraumatic. cp 22:35 Eyes: Periorbital structures: appear normal, Conjunctiva: normal, no exudate, no injection, Sclera: no appreciated abnormality, Lids and lashes: appear normal, bilaterally, 22:35 ENT: External ear(s): are unremarkable, Nose: is normal, Mouth: Lips: moist, Oral mucosa: moist, Posterior pharynx: Airway: normal, 22:35 Chest/axilla: Inspection: normal, 22:35 Cardiovascular: Rate: normal, Rhythm: regular, Edema: is not appreciated, JVD: is not appreciated, 22:35 Respiratory: the patient does not display signs of respiratory distress, Respirations: normal, no use of accessory muscles, no retractions, labored breathing, is not present, Breath sounds: are clear throughout, no decreased breath sounds, no stridor, no wheezing, 22:35 Abdomen/GI: Exam negative for discomfort, distension, guarding, Inspection: abdomen appears normal, 22:35 Musculoskeletal/extremity: Extremities: noted in the left elbow: erythema, swelling, tenderness, There is no evidence of decreased ROM, ROM: limited passive range of motion due to pain, in the left elbow, Pulses: noted to be 2+ in the left radial artery, 22:35 Skin: cellulitis, that is moderate, well demarcated, on the posterior left elbow, superficial pustule noted, 22:35 Neuro: Orientation: to person, place \T\ time. Mentation: is normal, Motor: moves all fours, strength is normal, Sensation: is normal, 08/19 00:37 ECG was reviewed by the Attending Physician. cp Vital Signs: 08/18 22:18 BP 139 / 88; Pulse 91; Resp 17; Temp 97.8; Pulse Ox 100% ; Weight 96.16 kg; Height 5 bm8 ft. 11 in. ; Pain 6/10; 23:25 BP 132 / 70; Pulse 84; Resp 18; Pulse Ox 99% on R/A; kj2 08/19 00:28 BP 115 / 73; Pulse 85; Resp 20; Pulse Ox 100% on R/A; kj2 02:31 BP 134 / 83; Pulse 78; Resp 18; Temp 97.8; Pulse Ox 98% ; Pain 0/10; bm8 08/18 22:18 Body Mass Index 29.57 (96.16 kg, 180.34 cm) bm8 08/18 22:18 Pain Scale: Adult bm8 02:31 Pain Scale: Adult bm8 [place] Coma Score: 02:31 Eye Response: spontaneous(4). Motor Response: obeys commands(6). Verbal Response: bm8 oriented(5). Total: 15. MDM: 08/18 22:20 Medical Screening Exam initiated kassidy 23:00 Differential diagnosis: abscess, cellulitis, septic joint. cp 08/19 00:30 Data reviewed: vital signs, nurses notes, lab test result(s), EKG, radiologic studies, cp plain films, and as a result, I will admit patient. 00:30 Consideration of Admission/Observation Patient was admitted/placed on observation. cp Management of patient was discussed with the following: Hospitalist: DR Cm will admit after discussion. I considered the following discharge prescriptions or medication management in the emergency department Medications were administered in the Emergency Department. See MAR. Independent interpretation of the following test(s) in the Emergency Department EKG: See my EKG interpretation above. Counseling: I had a detailed discussion with the patient and/or guardian regarding the historical points, exam findings, and any diagnostic results supporting the discharge/admit diagnosis, lab results, radiology results, the need for further work-up and treatment in the hospital. Response to treatment: the patient's symptoms have mildly improved after treatment. 08/18 22:43 Order name: CBC with Diff; Complete Time: 00:04 cp 08/18 22:43 Order name: CMP; Complete Time: 01:59 cp 08/19 00:04 Interpretation: Normal except: GFR 83; AST 12; ALT < 14; ALK 145; TP 8.3; GLOB 4.6; A/G cp 0.8. 08/18 22:43 Order name: Lactate w/ 2H reflex if indic.; Complete Time: 00:04 cp 08/19 00:04 Interpretation: Abnormal: LAC 3.6. cp 08/18 23:59 Order name: Ghost Lactate-NO COLLECT Timer; Complete Time: 01:59 EDMS 08/19 00:09 Order name: PT-INR cp 08/19 00:09 Order name: Blood Culture Adult (2) cp 08/19 00:20 Order name: Magnesium; Complete Time: 01:59 EDMS 08/19 01:07 Order name: Basic Metabolic Panel EDMS 08/19 01:07 Order name: Basic Metabolic Panel EDMS 08/19 01:07 Order name: CBC with Automated Diff EDMS 08/19 01:07 Order name: CBC with Automated Diff EDMS 08/19 01:07 Order name: Lipid Profile EDMS 08/19 01:07 Order name: Lipid Profile EDMS 08/19 03:45 Order name: Lactate Sepsis 2 HR Follow-up EDMS 08/18 22:43 Order name: XRAY Elbow LEFT 3 view cp 08/18 22:43 Order name: IV; Complete Time: 23:24 cp 08/19 00:09 Order name: Cardiac monitoring; Complete Time: 00:35 cp 08/19 00:09 Order name: EKG - Nurse/Tech; Complete Time: 00:35 cp 08/19 00:09 Order name: Labs collected and sent; Complete Time: 01:09 cp 08/19 00:09 Order name: O2 Per Protocol; Complete Time: 00:35 cp 08/19 00:09 Order name: O2 Sat Monitoring; Complete Time: 00:35 cp EC:37 Rate is 83 beats/min. Rhythm is regular. AL interval is prolonged at 224 msec. QRS cp interval is normal. QT interval is normal. T waves are Inverted in lead aVR. Interpreted by me. Reviewed by me. Administered Medications: 08/18 23:24 Drug: Ketorolac IVP 15 mg IVP once Route: IVP; Site: right antecubital; kj2 08/19 02:32 Follow up: Response: No adverse reaction bm8 01:08 Drug: vancoMYCIN IVPB 1.5 grams IVPB at calculated rate once Route: IVPB; Rate: kj2 calculated rate; Site: right antecubital; 02:31 Follow up: Response: No adverse reaction; IV Status: Infusion continued upon admission bm8 02:32 Drug: Piperacillin-Tazobactam IVPB 3.375 grams IVPB once over 60 mins; (mix in NS 100 bm8 mL) Route: IVPB; Infused Over: 60 mins; Site: right antecubital; 02:32 Follow up: Response: No adverse reaction; IV Status: Infusion continued upon admission bm8 Disposition Summary: 08/19/24 00:24 Hospitalization Ordered Notes: Hospitalization Status: Inpatient Admission cp Provider: Prince yi Pierre Condition: Stable cp Problem: new cp Symptoms: have improved cp Bed/Room Type: Standard cp Location: Telemetry/MedSurg (Inpatient)(08/19/24 14:13) sp Room Assignment: 210(08/19/24 14:13) sp Diagnosis - Cellulitis and acute lymphangitis of other parts of limb - left elbow cp Forms: - Medication Reconciliation Form cp - SBAR form cp - Leadership Thank You Letter cp Addendum: 08/22/2024 15:36 Co-signature as Attending Physician, Vin Snell MD I agree with the assessment and c preciado plan of care. Signatures: Dispatcher [employer] EDMS Vin Snell MD MD cha Pinkerton, Shawna sp Page, Corey, PA PA cp Garcia, Cindy, RN RN cg Noel Aggarwal RN RN bm8 Melisa Orellana RN RN kj2 Corrections: (The following items were deleted from the chart) 08/19 00:09 00:09 PROTIME (+INR)+COAG.LAB.BRZ ordered. EDMS EDMS 00:09 00:09 BLOOD CULTURE*+BA.LAB.BRZ ordered. EDMS EDMS 00:19 00:09 MAGNESIUM+C.LAB.BRZ ordered. EDMS EDMS 03:23 00:24 Telemetry/MedSurg (Inpatient) cp cg 03:23 00:24 cp cg 14:13 03:23 [facility] ER HOLD cg sp 14:13 03:23 ERHOLD- cg sp
--- NOTE | 2024-08-19 00:25 | ER ---
Nurse's Notes [facility] Name: Ranulfo Manuel Age: 74 yrs Sex: Male : 1950 Arrival Date: 08/18/2024 Time: 21:55 Bed 25 Private MD: Diagnosis: Cellulitis and acute lymphangitis of other parts of limb-left elbow Presentation: 08/18 22:18 Chief complaint: Patient states: abscess for days, went to [place] and has been taking bm8 scripts for it but it is not getting better. Coronavirus screen: At this time, the client does not indicate any symptoms associated with coronavirus-19. Ebola Screen: Patient negative for fever greater than or equal to 101.5 degrees Fahrenheit, and additional compatible Ebola Virus Disease symptoms Patient denies exposure to infectious person. Patient denies travel to an Ebola-affected area in the 21 days before illness onset. No symptoms or risks identified at this time. Initial Sepsis Screen: Does the patient meet any 2 criteria? No. Patient's initial sepsis screen is negative. Does the patient have a suspected source of infection? No. Patient's initial sepsis screen is negative. Risk Assessment: Do you want to hurt yourself or someone else?. Onset of symptoms was August 09, 2024. 22:18 Method Of Arrival: Ambulatory bm8 22:18 Acuity: GIN 4 bm8 Triage Assessment: 22:20 General: Appears in no apparent distress. comfortable, Behavior is calm, cooperative, bm8 appropriate for age. Pain: Complains of pain in left elbow Pain. EENT: No deficits noted. No signs and/or symptoms were reported regarding the EENT system. Neuro: No deficits noted. Level of Consciousness is awake, alert, obeys commands, Oriented to person, place, time, situation, Appropriate for age. Derm: Abscess located on left elbow is quarter sized. Historical: - Allergies: 22:20 No Known Allergies; bm8 - Home Meds: 22:20 metoprolol tartrate 25 mg Oral tab 0.5 tab once daily [Active]; Eliquis 5 mg oral bm8 tablet 2 tabs 2 times per day [Active]; - PMHx: 22:20 Atrial Fib; Hypothyroidism; WPW; bm8 - PSHx: 22:20 Coronary artery bypass graft; bm8 - Immunization history:: Adult Immunizations up to date. - Infectious Disease History:: Denies. - Social history:: Smoking status: Patient denies any tobacco usage or history of. Screenin:34 [facility] ED Fall Risk Assessment (Adult) History of falling in the last 3 months, kj2 including since admission No falls in past 3 months (0 pts) Confusion or Disorientation No (0 pts) Intoxicated or Sedated No (0 pts) Impaired Gait No (0 pts) Mobility Assist Device Used No (0 pt) Altered Elimination No (0 pt) Score/Fall Risk Level 0 - 2 = Low Risk Maintained a safe environment, Hourly rounding (assess needs \T\ fall precautionary measures) done. Abuse screen: Denies threats or abuse. Denies injuries from another. Nutritional screening: No deficits noted. Tuberculosis screening: No symptoms or risk factors identified. Assessment: 22:33 General: Appears in no apparent distress. Behavior is calm, cooperative. Pain: kj2 Complains of pain in left elbow Pain currently is 3 out of 10 on a pain scale. Neuro: Level of Consciousness is awake, alert, obeys commands, Oriented to person, place, time, situation. Cardiovascular: Patient's skin is warm and dry. Respiratory: Airway is patent Respiratory effort is unlabored. GI: No signs and/or symptoms were reported involving the gastrointestinal system. : No signs and/or symptoms were reported regarding the genitourinary system. 23:25 Reassessment: Patient appears in no apparent distress at this time. Patient and/or kj2 family updated on plan of care and expected duration. Pain level reassessed. Patient is alert, oriented x 3, equal unlabored respirations, skin warm/dry/pink. 08/19 00:28 Reassessment: Patient appears in no apparent distress at this time. Patient and/or kj2 family updated on plan of care and expected duration. Pain level reassessed. Patient is alert, oriented x 3, equal unlabored respirations, skin warm/dry/pink. 02:31 Reassessment: Patient appears in no apparent distress at this time. Patient and/or bm8 family updated on plan of care and expected duration. Pain level reassessed. Patient is alert, oriented x 3, equal unlabored respirations, skin warm/dry/pink. Patient denies pain at this time. Patient states feeling better. Patient states symptoms have improved. Vital Signs: 08/18 22:18 BP 139 / 88; Pulse 91; Resp 17; Temp 97.8; Pulse Ox 100% ; Weight 96.16 kg; Height 5 bm8 ft. 11 in. ; Pain 6/10; 23:25 BP 132 / 70; Pulse 84; Resp 18; Pulse Ox 99% on R/A; kj2 08/19 00:28 BP 115 / 73; Pulse 85; Resp 20; Pulse Ox 100% on R/A; kj2 02:31 BP 134 / 83; Pulse 78; Resp 18; Temp 97.8; Pulse Ox 98% ; Pain 0/10; bm8 08/18 22:18 Body Mass Index 29.57 (96.16 kg, 180.34 cm) bm8 08/18 22:18 Pain Scale: Adult bm8 02:31 Pain Scale: Adult bm8 [place] Coma Score: 02:31 Eye Response: spontaneous(4). Motor Response: obeys commands(6). Verbal Response: bm8 oriented(5). Total: 15. ED Course: 08/18 21:57 Patient arrived in ED. rg4 22:06 Vin Broderick PA is PHCP. cp 22:06 Vin Snell MD is Attending Physician. cp 22:20 Triage completed. bm8 22:20 Arm band placed on right wrist. bm8 22:26 Melisa Orellana, RANJIT is Primary Nurse. kj2 22:35 Patient has correct armband on for positive identification. Bed in low position. Call kj2 light in reach. Provided Education on: call light. 23:15 Inserted saline lock: 20 gauge in right antecubital area, using aseptic technique. kj2 Blood collected. Flushed with 10 mL NS. 23:24 Lactate w/ 2H reflex if indic. Sent. kj2 23:24 CMP Sent. kj2 23:24 CBC with Diff Sent. kj2 23:41 XRAY Elbow LEFT 3 view In Process Unspecified. EDMS 08/19 00:23 Prince Pierre MD is Hospitalizing Provider. cp 00:35 EKG done, by automotive glass technician. af3 01:09 Blood Culture Adult (2) Sent. kj2 02:30 No provider procedures requiring assistance completed. Patient admitted, IV remains in bm8 place. Administered Medications: 08/18 23:24 Drug: Ketorolac IVP 15 mg IVP once Route: IVP; Site: right antecubital; kj2 08/19 02:32 Follow up: Response: No adverse reaction bm8 01:08 Drug: vancoMYCIN IVPB 1.5 grams IVPB at calculated rate once Route: IVPB; Rate: kj2 calculated rate; Site: right antecubital; 02:31 Follow up: Response: No adverse reaction; IV Status: Infusion continued upon admission bm8 02:32 Drug: Piperacillin-Tazobactam IVPB 3.375 grams IVPB once over 60 mins; (mix in NS 100 bm8 mL) Route: IVPB; Infused Over: 60 mins; Site: right antecubital; 02:32 Follow up: Response: No adverse reaction; IV Status: Infusion continued upon admission bm8 Medication: 08/18 22:35 VIS not applicable for this client. kj2 Outcome: 08/19 00:24 Decision to Hospitalize by Provider. cp 02:31 Admitted to ER Hold. Please see [facility] for further documentation. bm8 02:31 Condition: stable 02:31 Instructed on the need for admit, Demonstrated understanding of instructions, follow-up care, 15:19 Patient left the ED. aa5 Signatures: Dispatcher [employer] EDMS Cony Zamora, RN RN aa5 Vin Broderick PA PA cp Garcia, Rubi rg4 Noel Aggarwal RN RN bm8 Melisa Orellana RN RN kj2 Ruthann Seals
[2024-08-19] MEDS ORDERED: VANCOMYCIN 500 MG/VIAL ONE (00:35)
[2024-08-19] MEDS ORDERED: VANCOMYCIN 1 GM/VIAL ONE (00:35)
[2024-08-19] MEDS ORDERED: NA CHLORIDE 0.9% 100 ML ONE (00:36)
[2024-08-19] MEDS ORDERED: PIPERACIL/TAZO 3.375 GM VIAL IV ONE (00:36)
[2024-08-19] MEDS ORDERED: NA CHLORIDE 0.9% 500 ML ONE (00:42)
[2024-08-19] MEDS ORDERED: ONDANSETRON 4 MG/2 ML VIAL IV PRN (01:03)
[2024-08-19] MEDS ORDERED: ACETAMINOPHEN 500 MG TAB PO PRN (01:03)
[2024-08-19] MEDS ORDERED: CLINDAMYCIN PHOSPHATE 900 MG in NA CHLORIDE 0.9% 50 ML IV SCH (01:05)
--- NOTE | 2024-08-19 01:09 | RAD REPORT ---
EXAM: Elbow Left 3 View XR Left Elbow 3 Views HISTORY: pain COMPARISON: None TECHNIQUE: Left Elbow 3 Views FINDINGS: No fracture or dislocation. No significant sclerotic/lytic bone lesion. Small osteophyte likely arising from left ulnar coronoid. Joint spaces unremarkable. Soft tissues unremarkable. IMPRESSION: Unremarkable left elbow Radiographs. Electronically signed by: Tod Cobos MD 08/18/2024 11:50 PM CDT RP Due to temporary technical issues with the [employer] reporting system, reports are being samantha d by the in-house radiologist without review as a courtesy to ensure prompt reporting the interpreting radiologist is fully responsible for the content of the report. Transcribed Date/Time: 08/19/2024 1:09 AM
--- NOTE | 2024-08-19 01:11 | P.HP ---
Certification for Inpatient Patient admitted to: Observation With expected LOS: <2 Midnights Practitioner: I am a practitioner with admitting privileges, knowledge of patient current condition, hospital course, and medical plan of care. Services: Services provided to patient in accordance with Admission requirements found in Title 42 Section 412.3 of the Code of Federal Regulations Patient History Date of Service: 08/19/24 Reason for admission: left elbow cellulitis History of Present Illness: Patient is a 72-year-old male possible history of Parkinson White stat us post ablation, atrial fibrillation status post cardioversion patient and hypertension. Presented to the ER with a non-healing left elbow cellulitis. Patient was seen at the [facility] and has been prescribed Keflex and eventually doxycycline. He failed outpatient management. Has been experiencing worsening pain, swelling and redness in the affected area. Other associated symptoms include low-grade fever. Allergies No Known Allergies Allergy (Verified 08/23/16 12:50) Home Medications: Irbesartan [Avapro] 75 mg PO DAILY 08/12/18 Levothyroxine [Synthroid*] 25 mcg PO [id number] 08/12/18 Rivaroxaban [Xarelto*] 20 mg PO BEDTIME 08/12/18 Sotalol HCl [Betapace AF] 0.5 tab PO BID #30 tab 01/12/23 - Past Medical/Surgical History Diabetic: No -: WPW S/P ablation in 1986 -: atrial fibrillation -: hypothyroidism -: melanoma -: WPW ablation -: MELONOMA REMOVED TO BACK - Family History Mother -: Heart disease - Social History Alcohol use: Yes CD- Drugs: No Caffeine use: Yes Physical Examination - Physical Exam General: Alert, Acute distress HEENT: Atraumatic, Normocephalic Respiratory: Clear to auscultation bilaterally, Normal air movement Cardiovascular: No edema, Normal pulses, Normal S1 S2, Irregular heart rate/rhythm Integumentary: Skin breakdown, Tenderness/swelling, Erythema, Warmth, Other (Left elbow inflammation) - Studies Laboratory Data (last 24 hrs) 08/19/24 08/18/24 08/18/24 00:09 23:15 23:15 WBC 7.70 Hgb 13.7 Hct 39.8 Plt Count 218 Sodium 140 Potassium 3.6 BUN 17 Creatinine 0.96 Glucose 101 Magnesium Cancelled 2.3 Total Bilirubin 0.7 AST 12 L ALT < 14 L Alkaline Phosphatase 145 H Assessment and Plan - Problems (Diagnosis) (1) Cellulitis of left elbow Current Visit: Yes Status: Acute (2) Atrial fibrillation Onset Date: 08/24/16 Current Visit: No Status: Acute (3) WPW (Amovq-Fwakmcwap-Gkchs syndrome) Onset Date: 08/24/16 Current Visit: No Status: Acute - Plan Assessment This is a 74-year-old male who is being admitted for left elbow cellulitis after failing outpatient management. Was previously on Keflex and eventually doxycycline with no significant relief. He is here due to worsening erythema, swelling. He does not meet criteria for sepsis Left elbow cellulitis Atrial fibrillation Hqsml-Ukzmdbqez-Omgwm syndrome Hypertension Plan: Will admit under observation telemetry Continue antibiotics with IV clindamycin Hold anticoagulation for possible ILD Consult general surgery for possible I&D - Advance Directives Does patient have a Living Will: Yes Does patient have a Durable POA for Healthcare: No
[2024-08-19 02:09] LABS: PT Prothrombin Time 15.1 SECONDS (10-13.0); Protime INR 1.34
[2024-08-19 02:44] VITALS: BMI 29.5
[2024-08-19] MEDS: CLINDAMYCIN 900MG/D5W 900 MG/50 ML IVPB IV SCH (03:00)
[2024-08-19] MEDS: NA CHLORIDE 0.9% 1,000 ML IV SCH (03:00)
[2024-08-19] MEDS ORDERED: NA CHLORIDE 0.9% 1,000 ML ONE (04:01)
[2024-08-19] MEDS ORDERED: CLINDAMYCIN 900MG/D5W 900 MG/50 ML IVPB IV ONE ×2 (04:01→08:17)
[2024-08-19] MEDS: METOPROLOL XL 25 MG TAB PO SCH (09:45)
--- NOTE | 2024-08-19 10:14 | P.PN ---
Date of Service: 08/19/24 Subjective: No significant change since admission earlier today Seen by general surgery Physical Exam: GEN: Alert, oriented, NAD CV: Regular rate and rhythm, no edema Pulm: Nonlabored respirations on room air, clear bilaterally ABD: soft, nontender, nondistended Integumentary: Left elbow tenderness and swelling, small quarter size area of erythema near elbow, no purulent drainage Neuro: Normal speech, normal affect Problem List: Left upper extremity cellulitis lactic acidosis, resolved Atrial fibrillation s/p cardioversion Pgokq-Wsgrjqsdu-Fixnd syndrome s/p ablation (1986) Hypertension Hypothyroidism Hx CAD s/p CABG Hx melanoma Left upper extremity cellulitis lactic acidosis, resolved on admission, presents with worsening pain, swelling and erythema of left elbow region. +low grade temps [facility] and Doxycycline but continued to worsen. Dr. Chu, general surgeon consulted Follow blood cultures 08/19 - Continue medical management, empiric antibiotics local wound care per surgery. Keep LUE elevated. IV clindamycin (08/19-) pain control, IVF Advance diet. No surgery planned today. Lactic acid improved. Atrial fibrillation s/p cardioversion Fakqd-Wzvwjzzel-Slrrn syndrome s/p ablation (1986) Hypertension Hypothyroidism Hx CAD s/p CABG Hx melanoma confirm home meds, restart as appropriate resume oral metoprolol VTE: Code: Full Dispo: Home Pending improvement, possible surgery Time Spent Managing Pts Care (In Minutes): 55
[2024-08-19 15:28] VITALS: O2SAT 98
--- NOTE | 2024-08-19 17:01 | CON ---
Date of Consultation: 08/19/2024 Brief History Of Present Illness: The patient is a -txif-pcx male with a history of possible Jegpg-Mtscbscqg-Vrwcj syndrome, status post ablation, atrial fibrillation, status post c ardioversion, and hypertension, who presents to the ER with a nonhealing left elbow cellulitis. He i s uncertain of how this actually occurred, but it occurred sometime before in the past, he was leanin g on his arm chair and noted some swelling, tenderness in the area. [facility] went to [facility]ly gets his care. He was given Keflex pills, which did not improve, and as such, he went back to e [facility] and got a dose for doxycycline. He continued to have worsening of this area with worsening pain , swelling to the elbow area extending up to the forearm. There was some redness in the area as well . He is uncertain if this is an envenomation or how this occurred, but as noted, it got progressivel y worse with increasing pain, swelling, redness and tenderness to the area. As such, he came to the emergency room with low-grade fever and the above-stated issues. Past Medical History: Significant for Xtwwq-Chuckbikg-Vnplm, status post ablation in 1986, atrial fi brillation, hypothyroidism, melanoma removed of his back surgery. Allergies: TO NOTE NO KNOWN DRUG ALLERGIES. Home Medications: Include Avapro, Synthroid, Xarelto, Betapace. He has currently been taking doxycy ochoa and Keflex for approximately 4 days. Family History: He has a family history of heart disease in his mother. Social History: He drinks alcohol socially. Denies recreational drug use. Denies tobacco use. Review of Systems: Ten-point review of systems other than HPI, denies. Physical Examination: General: At the time of my examination, he is awake, alert, and oriented. Psychiatric: He is appropriate and conversive. HEENT: Normocephalic. Sclerae anicteric. Mucous membranes are moist. Oropharynx clear. Neck: Supple without JVD. Chest: Normal expansion and excursion. Cardiovascular: Regular rate, irregular rhythm. Pulmonary: Clear to auscultation bilaterally. Extremities: Focused examination of extremities. He has some swelling to his left arm generally wit h a small punctate approximately 2 cm area of cellulitis on the elbow area specifically with a small crusted opening consistent with a possible envenomation in this area. The swelling extends to his fo rearm, but there is no cellulitis to the remainder of his arm except confined to his elbow area. He states he feels like since he has been at the hospital, it has been getting some improvement. Howeve r, no significant changes at this point. No drainage is appreciated in this area as well. He is abl e to fully extend and move the arm without pain. The swelling does not extend beyond the elbow regio n and the skin is warm and dry, otherwise. Laboratory Data: Revealed a white blood cell count of 7.7, hemoglobin 13.7, hematocrit of 39.8, plat elet count is 218. His PT is 15.1, INR 1.34. His sodium 140, potassium 3.6, chloride 103, carbon di oxide is 29, BUN 17, creatinine 0.96, glucose is 101. Lactic acid was 3.6 on admission, now it is 0. 9. His magnesium 2.3, alkaline phosphatase 145. He had imaging performed, which included an elbow x -ray on 08/18 officially read as unremarkable left elbow radiographs. Assessment And Plan: This is a 74-year-old male who comes in with mild swelling of the left elbow an d some cellulitic changes. 1. IV fluid hydration. 2. Antibiotic coverage. 3. I do not find a drainable collection at this point. He has no pain with his range of motion. The swelling is not associated with any compartments pressures, increased pressure, or any other symptom s of compartment issue. There is no obvious joint involvement based on the clinical examination, and as such, there is no need for surgical intervention as there is no current drainable collections or other surgical issues to be addressed. At this point, I recommend placing topical mupirocin cream in the area, demarcate the area with a marking pen to show if it advances beyond that jhony and wrap and elevate the arm with an [place] bandage to add some gentle compression. I have explained the risks, latoya efits, and alternatives to the above-stated plan. Continue medical management per primary team. Anh arnett displayed he understands the above stated plan and agreed to proceed as indicated. JEN/SHARON Voice ID: [id number] Report ID: [id number]
[2024-08-19] MEDS: MUPIROCIN 2% OINT 22GM TUBE TOP SCH (21:00)
[2024-08-20 06:39] LABS: Absolute Basophils 0.1 K/uL (0-0.5); Absolute Eosinophils 0.3 K/uL (0-0.5); Absolute Monocytes 0.6 K/uL (0.1-1.3); Absolute Neutrophil 5.8 K/uL (1.8-8.0); Basophils % 0.8 % (0-1.3); Eosinophils % 3.8 % (0-4.4); Hematocrit 36.3 % (39.6-49.0); Hemoglobin 12.5 g/dL (13.6-17.9); Lymphocytes % 12.5 % (15.3-44.8); MCH 29.7 pg (27.0-35.0); MCHC 34.5 g/dL (32.0-36.0); MCV 86.3 fL (80-100); MPV 9.3 fL (7.6-11.3); Monocytes % 7.9 % (3.3-12.3); Nucleated Red Blood Cells % 0.1 % (0-0); Platelets 197 thou/uL (152-406); RBC Red Blood Cell Count 4.21 M/uL (4.33-5.43)
[2024-08-20 07:02] LABS: Anion Gap 7.1 mEq/L (5.0-15.0); Potassium 4.1 mEq/L (3.5-5.1)
[2024-08-20 08:19] VITALS: TEMP 97.8
--- NOTE | 2024-08-20 09:55 | P.PN ---
Date of Service: 08/20/24 Subjective: No significant change since admission earlier today Seen by general surgery Physical Exam: GEN: Alert, oriented, NAD CV: Regular rate and rhythm, no edema Pulm: Nonlabored respirations on room air, clear bilaterally ABD: soft, nontender, nondistended Integumentary: Left elbow tenderness and swelling, small quarter size area of erythema near elbow, no purulent drainage Neuro: Normal speech, normal affect Problem List: Left upper extremity cellulitis lactic acidosis, resolved Atrial fibrillation s/p cardioversion Gujyz-Snkkmprkl-Yphss syndrome s/p ablation (1986) Hypertension Hypothyroidism Hx CAD s/p CABG Hx melanoma Left upper extremity cellulitis lactic acidosis, resolved on admission, presents with worsening pain, swelling and erythema of left elbow region. +low grade temps [facility] and Doxycycline but continued to worsen. Dr. Chu, general surgeon consulted Follow blood cultures 08/19 - Continue medical management, empiric antibiotics local wound care per surgery. Keep LUE elevated. IV clindamycin (08/19-) pain control, IVF Advance diet. No surgery planned today. Lactic acid improved. Atrial fibrillation s/p cardioversion Jbbqi-Hnxklzitx-Mgkrv syndrome s/p ablation (1986) Hypertension Hypothyroidism Hx CAD s/p CABG Hx melanoma confirm home meds, restart as appropriate resume oral metoprolol VTE: Code: Full Dispo: Home Pending improvement, possible surgery Time Spent Managing Pts Care (In Minutes): 55
[2024-08-20 12:05] VITALS: BP 123/59
--- NOTE | 2024-08-20 13:20 | P.DS ---
Admission Date: 08/19/24 Discharge Date: 08/20/24 Disposition: ROUTINE DISCHARGE Discharge Condition: GOOD Reason for Admission: left elbow cellulitis Consultations: General surgery - Dr. Chu Brief History of Present Illness: 72yo M, PMH: Parkinson White status post ablation, atrial fibrillation status post cardioversion patient and hypertension. Patient presented to the ER with a non-healing left elbow cellulitis. Patient was seen at the [facility] and has been prescribed Keflex and eventually doxycycline. He failed outpatient management. Has been experiencing worsening pain, swelling and redness in the affected area. Other associated symptoms include low-grade fever. Hospital Course: Problem List: Left upper extremity cellulitis lactic acidosis, resolved Atrial fibrillation s/p cardioversion Failb-Gukmygqkj-Zcmwi syndrome s/p ablation (1986) Hypertension Hypothyroidism Hx CAD s/p CABG Hx melanoma Physician discharge instructions: Patient presented with left elbow pain, swelling, and erythema secondary to mild left upper extremity cellulitis. Xray of left elbow was negative for any acute findings. Dr. Chu, general surgeon was consulted and recommended medical management with empiric antibiotics, pain control, local wound care. Patient received IV clindamycin while hospitalized and had improvement of his symptoms. Elbow pain, swelling and erythema improved with antibiotics. Patient was feeling better, afebrile without leukocytosis, elbow pain improved, and was deemed stable for discharge. Patient is to complete 10 more days of clindamycin on discharge. Medications: Clindamycin 300mg 4 times daily for 10 days Mupirocin ointment to place on affected area Recommend taking over the counter probiotic while taking antibiotics Follow up: PCP 3-[address] Chu in a few days Please call to schedule / confirm appointments Physical Exam: GEN: Alert, oriented, NAD CV: Regular rate and rhythm, no edema Pulm: Nonlabored respirations on room air, clear bilaterally ABD: soft, nontender, nondistended Integumentary: Erythema improved, no purulent drainage, no swelling. Neuro: Normal speech, normal affect Vital Signs/Physical Exam: Temp Pulse Resp BP Pulse Ox 97.8 F 82 14 123/59 L 97 08/20/24 12:00 08/20/24 12:00 08/20/24 12:00 08/20/24 12:00 08/20/24 12:00 Laboratory Data at Discharge: WBC 7.70 thou/uL (4.3-10.9) 08/20/24 06:05 Hgb 12.5 g/dL (13.6-17.9) L 08/20/24 06:05 Hct 36.3 % (39.6-49.0) L 08/20/24 06:05 Plt Count 197 thou/uL (152-406) 08/20/24 06:05 PT 15.1 SECONDS (10-13.0) H 08/19/24 00:50 INR 1.34 08/19/24 00:50 Sodium 136 mEq/L (136-145) 08/20/24 06:05 Potassium 4.1 mEq/L (3.5-5.1) 08/20/24 06:05 BUN 21 mg/dL (7-18) H 08/20/24 06:05 Creatinine 0.92 mg/dL (0.70-1.30) 08/20/24 06:05 Glucose 104 mg/dL (74-106) 08/20/24 06:05 Magnesium Cancelled 08/19/24 00:09 Total Bilirubin 0.7 mg/dL (0.2-1.0) 08/18/24 23:15 AST 12 U/L (15-37) L 08/18/24 23:15 ALT < 14 U/L (16-61) L 08/18/24 23:15 Alkaline Phosphatase 145 U/L (45-117) H 08/18/24 23:15 Triglycerides 71 mg/dL (<150) 08/20/24 06:05 Cholesterol 113 mg/dL (<200) 08/20/24 06:05 HDL Cholesterol 50 mg/dL (40-60) 08/20/24 06:05 Cholesterol/HDL Ratio 2.26 08/20/24 06:05 Home Medications: Irbesartan [Avapro] 300 mg PO DAILY 08/12/18 Levothyroxine [Synthroid*] 25 mcg PO [id number] 08/12/18 Apixaban [Eliquis] 5 mg PO BID 08/19/24 Atorvastatin Calcium 20 mg PO BEDTIME 08/19/24 Furosemide [Lasix] 40 mg PO DAILY 08/19/24 Metoprolol Succinate 0.5 tab PO DAILY 08/19/24 Nifedipine [Procardia Xl] 30 mg PO DAILY 03/29/25 Mupirocin Oint [Bactroban 2% Ointment*] 1 appl TOP BID 10 Days #1 tube 08/20/24 clindamycin HCL [Cleocin HCl] 300 mg PO QID 10 Days #40 cap 08/20/24 New Medications: Mupirocin Oint [Bactroban 2% Ointment*] 1 appl TOP BID 10 Days #1 tube clindamycin HCL [Cleocin HCl] 300 mg PO QID 10 Days #40 cap Physician Discharge Instructions: Physician discharge instructions: Patient presented with left elbow pain, swelling, and erythema secondary to mild left upper extremity cellulitis. Xray of left elbow was negative for any acute findings. Dr. Chu, general surgeon was consulted and recommended medical management with empiric antibiotics, pain control, local wound care. Patient received IV clindamycin while hospitalized and had improvement of his symptoms. Elbow pain, swelling and erythema improved with antibiotics. Patient was feeling better, afebrile without leukocytosis, elbow pain improved, and was deemed stable for discharge. Patient is to complete 10 more days of clindamycin on discharge. Medications: Clindamycin 300mg 4 times daily for 10 days Mupirocin ointment to place on affected area Recommend taking over the counter probiotic while taking antibiotics Follow up: PCP 3-[address] Chu in a few days Please call to schedule / confirm appointments [facility]: [facility] [Primary [facility] Provider] - Time spent managing pt's care (in minutes): 45
--- NOTE | 2024-08-21 11:25 | EKG ---
Test Date: 2024-08-19 Test Time: 00:32:38 [employer]rel [employer]ung Remover [employer] Dumper: AF MEASUREMENT RESULTS: Intervals: Rate: 83 TX: 224 QRSD: 88 QT: 398 QTc: 467 [place]: P: 41 TX: 224 QRS: 104 T: 24 INTERPRETIVE STATEMENTS: Sinus rhythm with 1st degree AV block Rightward axis Borderline ECG Compared to ECG 01/11/2023 12:29:32 Right-axis deviation now present Electronically Signed On 08-21-24 11:20:35 CDT by Dontrell Hadley
== END 2024-08-20 14:10 | disposition home or self-care (01) | DRG 603 ==
LOC: ER 21:55 → ERHOLD 08-19 01:03 → 2ND 08-19 14:30 → OBSVTOIN 08-19 16:52
PROVIDERS: ADMIT Internal Medicine; ATTEND Hospitalist
DX: L03.114 Cellulitis of left upper limb (principal); E87.20 Acidosis, unspecified; I48.91 Unspecified atrial fibrillation; I10 Essential (primary) hypertension; E03.9 Hypothyroidism, unspecified; I45.6 Pre-excitation syndrome; G20.A1 Parkinson's disease without dyskinesia, without mention of fluctuations; I25.10 Atherosclerotic heart disease of native coronary artery without angina pectoris; Z95.1 Presence of aortocoronary bypass graft; Z79.01 Long term (current) use of anticoagulants; Z79.890 Hormone replacement therapy; Z79.899 Other long term (current) drug therapy
CPT/HCPCS: 36415; 80048; 80053; 80061; 83605; 83735; 85025; 85610; 87040; 93005; 96365; 96375; 99285; G0378; J2543; J3370; J7030; J7040

== ENCOUNTER 2024-08-31 04:27 | Emergency (ER) | payer OTHER, MEDICARE ==
--- NOTE | 2024-08-31 05:01 | EDPHYS ---
Physician Documentation [facility] Name: Ranulfo Manuel Age: 74 yrs Sex: Male : 1950 Arrival Date: 08/31/2024 Time: 04:27 Bed 7 Private MD: ED Physician Ever Joshi HPI: 08/31 04:51 This 74 yrs old Male presents to ER via Unassigned with complaints of Facial sp4 Swelling, Facial redness/pain. 05:04 74-year-old male presents for left cheek redness pain swelling. sp4 05:05 Patient reports symptoms started 3 days ago.. sp4 Historical: - Allergies: 04:58 No Known Allergies; al5 - Home Meds: 04:58 Eliquis 5 mg Oral tablet 2 tabs 2 times per day [Active]; metoprolol tartrate 25 mg al5 Oral tab 0.5 tab once daily [Active]; - PMHx: 04:58 Atrial Fib; Hypothyroidism; WPW; al5 - PSHx: 04:58 Coronary artery bypass graft; al5 - Immunization history:: Adult Immunizations up to date. - Infectious Disease History:: Denies. - Social history:: Smoking status: unknown. - Family history:: not pertinent. ROS: 05:05 Constitutional: Negative for fever, chills, and weight loss, Positive for Left facial sp4 swelling , pain, redness 05:05 All other systems are negative, Exam: 05:07 Constitutional: This is a well developed, well nourished patient who is awake, alert, sp4 and in no acute distress. Head/Face: Normocephalic, atraumatic. Eyes: Pupils equal round and reactive to light, extra-ocular motions intact. Lids and lashes normal. Conjunctiva and sclera are not injected. Cornea within normal limits. Periorbital areas with no swelling, redness, or edema. ENT: Nares patent. No nasal discharge, no septal abnormalities noted. Tympanic membranes are normal and external auditory canals are clear. Oropharynx with no redness, swelling, or masses, exudates, or evidence of obstruction, uvula midline. Mucous membranes moist. Neck: Trachea midline, no thyromegaly or masses palpated, and no cervical lymphadenopathy. Supple, full range of motion without nuchal rigidity, or vertebral point tenderness. Chest/axilla: Normal chest wall appearance and motion. Nontender with no deformity. No lesions are appreciated. Cardiovascular: Regular rate and rhythm with a normal S1 and S2. No gallops, murmurs, or rubs. Normal PMI, no JVD. No pulse deficits. Respiratory: Lungs have equal breath sounds bilaterally, clear to auscultation and percussion. No rales, rhonchi or wheezes noted. No increased work of breathing, no retractions or nasal flaring. Abdomen/GI: Soft, with normal bowel sounds. No distension or tympany. No guarding or rebound. No evidence of tenderness throughout. Back: No spinal tenderness. No costovertebral tenderness. Skin: Warm, dry with normal turgor. Normal color with no rashes, no lesions, and no evidence of cellulitis. MS/ Extremity: Pulses equal, no cyanosis. Neurovascular intact. Full, normal range of motion. Neuro: Awake and alert, GCS 15, oriented to person, place, time, and situation. Cranial nerves II-XII grossly intact. Motor strength 5/5 in all extremities. Sensory grossly intact. Psych: Awake, alert, with orientation to person, place and time. Behavior, mood, and affect are within normal limits Vital Signs: 04:57 BP 148 / 84; Pulse 93; Resp 18; Temp 98.3; Pulse Ox 100% on R/A; Weight 96.16 kg; al5 Height 5 ft. 11 in. ; 04:57 Body Mass Index 29.57 (96.16 kg, 180.34 cm) al5 [place] Coma Score: 05:07 Eye Response: spontaneous(4). Motor Response: obeys commands(6). Verbal Response: sp4 oriented(5). Total: 15. MDM: 04:53 Medical Screening Exam initiated sp4 05:08 Differential diagnosis: abscess, allergic reaction, cellulitis, insect bite. Data sp4 reviewed: vital signs, nurses notes, old medical records. Consideration of Admission/Observation Escalation of care including admission/observation considered. ED course: Exam consistent with erysipelas. Will implement Bactrim and cephalexin for the next 10 days.. Administered Medications: 05:08 Drug: Acetaminophen PO 1000 mg PO once Route: PO; al5 05:09 Follow up: Response: No adverse reaction; Medication administered at discharge. al5 05:09 Drug: Trimethoprim-Sulfamethoxazole PO (160 mg-800 mg (DS) 1 tablet PO once Route: PO; al5 05:09 Follow up: Response: No adverse reaction; Medication administered at discharge. al5 05:09 Drug: Cephalexin PO 500 mg PO once Route: PO; al5 05:09 Follow up: Response: No adverse reaction; Medication administered at discharge. al5 Disposition Summary: 08/31/24 05:01 Discharge Ordered Notes: Location: Home sp4 Problem: new sp4 Symptoms: have improved sp4 Condition: Stable sp4 Diagnosis - Left facial erysipelas sp4 - Erysipelas sp4 Followup: sp4 - With: Private Physician - When: 7 - 10 days - Reason: Recheck today's complaints Discharge Instructions: - Discharge Summary Sheet sp4 - Erysipelas sp4 Forms: - Patient Portal Instructions sp4 Prescriptions: - Cephalexin 500 mg Oral Capsule - take 1 capsule ORAL route every 12 hours for 10 days; 20 capsule; Refills: 0, sp4 Product Selection Permitted - Bactrim DS 800-160 mg Oral Tablet - take 1 tablet ORAL route every 12 hours for 10 days; 20 tablet; Refills: 0, sp4 Product Selection Permitted Signatures: Ever Joshi MD MD sp4 Shalonda Alex RN RN al5
--- NOTE | 2024-08-31 05:01 | ER ---
Nurse's Notes [facility] Name: Ranulfo Manuel Age: 74 yrs Sex: Male : 1950 Arrival Date: 08/31/2024 Time: 04:27 Bed 7 Private MD: Diagnosis: Left facial erysipelas;Erysipelas Presentation: 08/31 04:57 Chief complaint: Patient states: c/o facial redness patch and pain to L side x3 days. al5 Coronavirus screen: At this time, the client does not indicate any symptoms associated with coronavirus-19. Ebola Screen: No symptoms or risks identified at this time. Initial Sepsis Screen: Does the patient meet any 2 criteria? HR > 90 bpm. No. Patient's initial sepsis screen is negative. Does the patient have a suspected source of infection? No. Patient's initial sepsis screen is negative. Risk Assessment: Do you want to hurt yourself or someone else?. Onset of symptoms was August 28, 2024. 04:57 Method Of Arrival: Ambulatory al5 04:57 Acuity: GIN 4 al5 Triage Assessment: 04:58 General: Appears in no apparent distress. comfortable, Behavior is calm, cooperative. al5 Pain: Complains of pain in left cheek. EENT: No signs and/or symptoms were reported regarding the EENT system. Neuro: Level of Consciousness is awake, alert, obeys commands, Oriented to person, place, time, situation. Cardiovascular: Capillary refill < 3 seconds Patient's skin is warm and dry. Respiratory: Airway is patent Respiratory effort is even, unlabored, Respiratory pattern is regular, symmetrical. GI: No signs and/or symptoms were reported involving the gastrointestinal system. : No signs and/or symptoms were reported regarding the genitourinary system. Derm: dry redness patch to L side cheek. Derm: Skin is intact, is healthy with good turgor, Skin is pink, warm \T\ dry. normal. Musculoskeletal: No signs and/or symptoms reported regarding the musculoskeletal system. Historical: - Allergies: :58 No Known Allergies; al5 - Home Meds: 04:58 Eliquis 5 mg Oral tablet 2 tabs 2 times per day [Active]; metoprolol tartrate 25 mg al5 Oral tab 0.5 tab once daily [Active]; - PMHx: 04:58 Atrial Fib; Hypothyroidism; WPW; al5 - PSHx: 04:58 Coronary artery bypass graft; al5 - Immunization history:: Adult Immunizations up to date. - Infectious Disease History:: Denies. - Social history:: Smoking status: unknown. - Family history:: not pertinent. Screenin:00 [facility] ED Fall Risk Assessment (Adult) History of falling in the last 3 months, al5 including since admission No falls in past 3 months (0 pts) Confusion or Disorientation No (0 pts) Intoxicated or Sedated No (0 pts) Impaired Gait No (0 pts) Mobility Assist Device Used No (0 pt) Altered Elimination No (0 pt) Score/Fall Risk Level 0 - 2 = Low Risk Oriented to surroundings, Maintained a safe environment, Hourly rounding (assess needs \T\ fall precautionary measures) done. Abuse screen: Denies threats or abuse. Has been threatened or abused. Nutritional screening: No deficits noted. Tuberculosis screening: No symptoms or risk factors identified. Assessment: 04:59 Reassessment: see triage assessment. al5 Vital Signs: 04:57 BP 148 / 84; Pulse 93; Resp 18; Temp 98.3; Pulse Ox 100% on R/A; Weight 96.16 kg; al5 Height 5 ft. 11 in. ; 04:57 Body Mass Index 29.57 (96.16 kg, 180.34 cm) al5 Liza Coma Score: 05:07 Eye Response: spontaneous(4). Motor Response: obeys commands(6). Verbal Response: sp4 oriented(5). Total: 15. ED Course: 04:28 Patient arrived in ED. [email or web address] 04:51 Ever Joshi MD is Attending Physician. sp4 04:57 Shalonda Alex RN is Primary Nurse. al5 04:58 Triage completed. al5 04:59 Arm band placed on right wrist. Patient placed in the treatment room, in view of staff al5 members, on pulse oximetry. 05:00 Patient has correct armband on for positive identification. Bed in low position. Call al5 light in reach. Side rails up X 1. Provided Education on: medications. 05:00 No provider procedures requiring assistance completed. Patient did not have IV access al5 during this emergency room visit. Administered Medications: 05:08 Drug: Acetaminophen PO 1000 mg PO once Route: PO; al5 05:09 Follow up: Response: No adverse reaction; Medication administered at discharge. al5 05:09 Drug: Trimethoprim-Sulfamethoxazole PO (160 mg-800 mg (DS) 1 tablet PO once Route: PO; al5 05:09 Follow up: Response: No adverse reaction; Medication administered at discharge. al5 05:09 Drug: Cephalexin PO 500 mg PO once Route: PO; al5 05:09 Follow up: Response: No adverse reaction; Medication administered at discharge. al5 Medication: 05:00 VIS not applicable for this client. al5 Outcome: 05:01 Discharge ordered by . sp4 05:09 Discharged to home ambulatory, al5 05:09 Condition: good 05:09 Discharge instructions given to patient, Instructed on discharge instructions, follow up and referral plans. medication usage, Demonstrated understanding of instructions, follow-up care, medications, Prescriptions given X 2, 05:09 Patient left the ED. al5 Signatures: Kristan [id number] Ever Joshi MD MD sp4 Shalonda Alex RN RN al5
[2024-08-31] MEDS ORDERED: CEPHALEXIN 250 MG CAP ONE (05:02)
[2024-08-31] MEDS ORDERED: SMZ./TMP. 800/160 MG TABLET ONE (05:03)
[2024-08-31] MEDS ORDERED: ACETAMINOPHEN 500 MG TAB ONE (05:03)
[2024-08-31 05:19] VITALS: BP 148/84; TEMP 98.3; O2SAT 100
== END 2024-08-31 05:09 | disposition home or self-care (01) ==
LOC: ER 04:27
DX: A46 Erysipelas (principal); I48.91 Unspecified atrial fibrillation; Z79.01 Long term (current) use of anticoagulants; Z95.1 Presence of aortocoronary bypass graft
CPT/HCPCS: 99283